=== PATIENT | male | born 1950 | race African-American/Black ===

== ENCOUNTER 2017-11-04 11:30 | Outpatient (RCR) | payer MEDICARE ==
[~2017-11-04 11:30] MED LIST: LIDOCAINE VISC 2% SOLN 15 ML UDC ONE; MINERAL OIL/PETROLAT/GLYCERI 6OZ BTL ONE
[2017-11-11] MEDS ORDERED: MINERAL OIL/PETROLAT/GLYCERI 6OZ BTL ONE (14:14)
== END 2017-11-13 ==
LOC: WCC 11:30
PROVIDERS: ATTEND Podiatrist Foot & Ankle Surgery
DX: T81.89XA Other complications of procedures, not elsewhere classified, initial encounter (principal); E11.621 Type 2 diabetes mellitus with foot ulcer; L97.413 Non-pressure chronic ulcer of right heel and midfoot with necrosis of muscle; R60.0 Localized edema; I89.0 Lymphedema, not elsewhere classified; I87.2 Venous insufficiency (chronic) (peripheral); B96.89 Other specified bacterial agents as the cause of diseases classified elsewhere; I10 Essential (primary) hypertension
CPT/HCPCS: 15275; 29445; 29581 ×7; G0463 ×5; Q4131

== ENCOUNTER → 2017-12-01 | Day surgery (SDC) | payer MEDICARE ==
[~2017-12-01] MED LIST changes: +BACITRACIN ZINC 15 GM OINT ONE; +BENAZEPRIL HCL10 MG PO; +BUPIVACAINE HCL 0.5% INJ 30 ML VIAL INJ ONE; +CEFAZOLIN SOD 1 GM VIAL ONE; +FENTANYL CITRATE/PF 100MCG/2 ML INJ ONE; +LIDOCAINE 1% W/EPINEPHRINE 20 ML VIAL ONE; +LIDOCAINE HCL 1% LOCAL INJ 20 ML VIAL ONE; +LIDOCAINE HCL 2% LOCAL INJ 5 ML SDV VIAL INJ ONE; -LIDOCAINE VISC 2% SOLN 15 ML UDC ONE; +MIDAZOLAM HCL 2 MG/2 ML VIAL ONE; -MINERAL OIL/PETROLAT/GLYCERI 6OZ BTL ONE; +NOVOLOG MI100 UNIT/1 SQ; +PROPOFOL IV EMULSION 10 MG/ML 20 ML VIAL ONE; +SIMVASTATIN40 MG PO; +VERAPAMIL ER120 MG PO
[2017-12-01 09:00] LABS: BASOPHILS % 0.3 % (0.0-1.0); EOSINOPHILS # (AUTO) 0.1 (0.0-0.4); EOSINOPHILS % 1.3 % (0.0-6.0); HEMATOCRIT 36.8 % (34.2-44.1); HEMOGLOBIN 11.9 g/dL (12.0-16.0); LYMPHOCYTES # (AUTO) 3.5 (1.0-3.2); LYMPHOCYTES % 35.7 % (18.0-39.1); MEAN CORPUSCULAR HEMOGLOBIN 25.6 pg (28-32); MEAN CORPUSCULAR HGB CONC 32.3 g/dL (31-35); MEAN CORPUSCULAR VOLUME 79.3 fL (81-99); MONOCYTES # (AUTO) 0.6 (0.2-0.8); MONOCYTES % 6.4 % (4.4-11.3); NEUTROPHILS # (AUTO) 5.5 (2.1-6.9); PLATELET COUNT 205 x10e3/uL (140-360); RED BLOOD COUNT 4.64 x10e6/uL (3.6-5.1); RED CELL DISTRIBUTION WIDTH 17.8 % (11.7-14.4)
--- NOTE | 2017-12-01 14:52 | Operative Report ---
DATE OF PROCEDURE: December 01, 2017 PREOPERATIVE DIAGNOSIS: Infected abscess posterior neck. POSTOPERATIVE DIAGNOSIS: Infected abscess posterior neck. PROCEDURE: Excision of infected abscess posterior neck, approximally 15 cm2. ANESTHESIA: MAC/local. HISTORY: The patient is a 67-year-old insulin-dependent diabetic female who was being seen in the wound care clinic for a purulent draining sinus on the posterior aspect of the neck. The area had been incised and drained and packed; however, it continues to drain suppurative exudate. The risks, benefits, and alternatives of treatment were discussed with the patient and she is prepared to undergo the procedure as outlined. PROCEDURE IN DETAIL: Patient was marked preoperatively in the holding area. She was brought to the operating theater and after the induction of adequate IV sedation, she was prepped and draped in a supine position. A time out was performed. The area around the draining sinus was marked out. The skin and subcutaneous tissues were infiltrated with a 50:50 mixture of 1% Xylocaine with epinephrine and 0.5% plain Marcaine, a total of 20 mL is used. After waiting appropriate amount time for maximum vasoconstrictive effect, the incision was made through the skin and the subcutaneous tissues. The bleeding was controlled using the electrocautery. Using the electrocautery, the entire infected abscess is dissected on the outside to prevent inadvertent puncturing and drainage of the infected contents. It is dissected all the way down to the superficial fascia of the neck and then, the entire specimen is removed en bloc and sent for permanent pathologic examination. The wound is copiously irrigated with bacteriostatic saline. Hemostasis is checked and made absolute using the electrocautery. At this point, a layered closure was performed to remove the space with 3-0 Monocryl in an interrupted buried fashion, followed by 4-0 Monocryl in interrupted buried fashion to approximate the deep dermis and finally 5-0 Monocryl in a running subcuticular stitch. Antibiotic ointment and sterile dressing was applied. Patient tolerated the procedure well. The estimated blood loss for procedure was 15 to 20 mL. She was returned to recovery room in satisfactory condition and discharged with a postoperative instruction sheet as well as a followup appointment. Job#: [id number] VAS
--- OUTSIDE RECORDS SUMMARY | 2018-02-20 17:15 | XMS REPORT | Continuity of Care Document ---
Author Author [facility] Organization [facility] Address [address] [place] [address] Phone Unavailable Care Team Providers Care Community Living Coach Name Role Phone NONSTAFF PCP Unavailable Insurance Providers Guarantor Padmini Powell Address [address] [place] [address] Email NONE Payer [facility] Policy Number [id number] Subscriber's Name Andre,Padmini M Relationship 18 Self / Same As Patient Effective Date 17 Payer Medicare A & B Policy Number [id number] Subscriber's Name Padmini Powell Relationship 18 Self / Same As Patient Effective Date 17 Advance Directives Directive Response Recorded Date/Time Does the patient have an advance directive? No 12/16/16 12:41pm If yes, is advance directive on file with [facility]? No 12/16/16 12:41pm If not on file with [facility] will patient provide a copy? No 12/16/16 12:41pm Do you have a Directive to Physician? No 01/17/18 10:50am Do you have a Medical Power of Icu Specialist? No 01/17/18 10:50am Do you have an out of hospital Do Not Resuscitate Order? No 01/17/18 10:50am Do you have any special needs we should be aware of? No 01/17/18 10:50am Do you have a support person here with you today? No 01/17/18 10:50am Did patient receive Notice of Privacy Practices? Yes 01/17/18 10:50am Did patient receive patient rights and responsibilities? Yes 01/17/18 10:50am Problems No problem information available. Medications Current Home Medications Medication Dose Units Route Directions Days Qty Instructions Start Date Benazepril Hcl 10 Mg Tablet 20 Mg Oral Daily 30 Tab Insuln Asp Prt/Insulin Aspart (Novolog Mix 70-30 Flexpen Syrn) 100 Unit/1 Ml Insuln.pen 50 Unit Sub-Q Am Insuln Asp Prt/Insulin Aspart (Novolog Mix 70-30 Flexpen Syrn) 100 Unit/1 Ml Insuln.pen 40 Units Sub-Q Pm Simvastatin 40 Mg Tablet 40 Mg Oral Today At 9:00PM 30 Tab Verapamil Hcl (Verapamil Er) 120 Mg Cap24h.pel 240 Mg Oral Daily Social History No social history information available. Hospital Discharge Instructions No hospital discharge instruction information available. Plan of Care Prescriptions See Medication Section Functional Status No functional status information available. Allergies, Adverse Reactions, Alerts No known allergies. Immunizations No immunization information available. Vital Signs No vital sign information available. Results Laboratory Results Test Name Result Units Flags Reference Collection Date/Time Result Date/ Time Comments White Blood Count 7.08 x10e3/uL 4.8-10.8 05/11/2017 3:50pm 05/11/2017 3 :54pm Red Blood Count 4.08 x10e6/uL 3.6-5.1 05/11/2017 3:50pm 05/11/2017 3: 54pm Hemoglobin 10.3 g/dL L 12.0-16.0 05/11/2017 3:50pm 05/11/2017 3:54pm Hematocrit 31.7 % L 34.2-44.1 05/11/2017 3:50pm 05/11/2017 3:54pm Mean Corpuscular Volume 77.7 fL L 81-99 05/11/2017 3:50pm 05/11/2017 3: 54pm Mean Corpuscular Hemoglobin 25.2 pg L 28-32 05/11/2017 3:50pm 2016 3:54pm Mean Corpuscular Hemoglobin Concent 32.5 g/dL 31-35 05/11/2017 3:50pm 05/11/2017 3:54pm Red Cell Distribution Width 18.7 % H 11.7-14.4 05/11/2017 3:50pm 2016 3:54pm Platelet Count 213 x10e3/uL 140-360 05/11/2017 3:50pm 05/11/2017 3: 54pm Neutrophils (%) (Auto) 62.0 % 38.7-80.0 05/11/2017 3:50pm 05/11/2017 3: 54pm Lymphocytes (%) (Auto) 27.8 % 18.0-39.1 05/11/2017 3:50pm 05/11/2017 3: 54pm Monocytes (%) (Auto) 8.2 % 4.4-11.3 05/11/2017 3:50pm 05/11/2017 3: 54pm Eosinophils (%) (Auto) 1.6 % 0.0-6.0 05/11/2017 3:50pm 05/11/2017 3: 54pm Basophils (%) (Auto) 0.1 % 0.0-1.0 05/11/2017 3:50pm 05/11/2017 3:54pm IM GRANULOCYTES % 0.3 % 0.0-1.0 05/11/2017 3:50pm 05/11/2017 3:54pm Neutrophils # (Auto) 4.4 2.1-6.9 05/11/2017 3:50pm 05/11/2017 3:54pm Lymphocytes # (Auto) 2.0 1.0-3.2 05/11/2017 3:50pm 05/11/2017 3:54pm Monocytes # (Auto) 0.6 0.2-0.8 05/11/2017 3:50pm 05/11/2017 3:54pm Eosinophils # (Auto) 0.1 0.0-0.4 05/11/2017 3:50pm 05/11/2017 3:54pm Basophils # (Auto) 0.0 0.0-0.1 05/11/2017 3:50pm 05/11/2017 3:54pm Absolute Immature Granulocyte (auto 0.02 x10e3/uL 0-0.1 05/11/2017 3: 50pm 05/11/2017 3:54pm Sodium Level 141 mmol/L 136-145 05/11/2017 3:50pm 05/11/2017 4:15pm Potassium Level 3.4 mmol/L L 3.5-5.1 05/11/2017 3:50pm 05/11/2017 4: 15pm Chloride Level 105 mmol/L 98-107 05/11/2017 3:50pm 05/11/2017 4:15pm Carbon Dioxide Level 26 mmol/L 22-05/11/2017 3:50pm 05/11/2017 4: 15pm Anion Gap 13.4 mmol/L 8-05/11/2017 3:5005/11/2017 4:15pm Blood Urea Nitrogen 6 mg/dL L -05/11/2017 3:50pm 05/11/2017 4:15pm Creatinine 0.81 mg/dL 0.57-1.11 05/11/2017 3:5005/11/2017 4:15pm BUN/Creatinine Ratio 7 05-0805/11/2017 3:50pm 05/11/2017 4:15pm Estimat Glomerular Filtration Rate > 60 ML/MIN 60- 05/11/2017 3:50pm 4:15pm Ranges were taken from the National Kidney Disease Education Program and the National [employer] literature. Reference ranges: 60 or greater: Normal 16-59 (for 3 consecutive months): Chronic kidney disease 15 or less: Kidney failure Glucose Level 125 mg/dL H 74-118 05/11/2017 3:50pm 05/11/2017 4:15pm Calcium Level 9.0 mg/dL 8.4-10.2 05/11/2017 3:5005/11/2017 4:15pm Hemoglobin A1c Percent 5.6 % 4.0-7.0 05/11/2017 3:05/11/2017 4: 01pm Total Bilirubin 0.6 mg/dL 0.2-1.2 05/11/2017 3:05/11/2017 4:15pm Aspartate Amino Transf (AST/SGOT) 10 IU/L 5-34 05/11/2017 3:50pm 2016 4:15pm Alanine Aminotransferase (ALT/SGPT) 7 IU/L 0-55 05/11/2017 3:50pm 05/11 4:15pm Total Protein 6.7 g/dL 6.5-8.1 05/11/2017 3:5005/11/2017 4:15pm Albumin 3.4 g/dL L 3.5-5.0 05/11/2017 3:50pm 05/11/2017 4:15pm Globulin 3.3 g/dL 2.3-3.5 05/11/2017 3:50pm 05/11/2017 4:15pm Albumin/Globulin Ratio 1.0 0.8-2.0 05/11/2017 3:50pm 05/11/2017 4: 15pm Alkaline Phosphatase 57 IU/L 40-150 05/11/2017 3:50pm 05/11/2017 4: 15pm Prealbumin 13 mg/dL 10-36 05/11/2017 3:50pm 05/12/2017 10:19am Performed at: [facility] [id number] Supervisor [employer]: Angel Kahn MD, Phone: [phone] Bedside Glucose 104 mg/dL 70-120 09/07/2017 12:29pm 09/08/2017 8:30am Meter ID: [id number] Procedures Procedure Status Date Provider(s) APPLY CURRY JOSEPH LWR LEG Completed 09/14/17 MELISA PHILLIP DPM Encounters Encounter Location Arrival/Admit Date Discharge/Depart Date Attending Provider Discharged [facility] 02/07/18 1:22pm 02/11/18 11:59pm MELISA PHILLIP DPM Discharged [facility] 12/20/17 12:25pm 11:59pm MELISA PHILLIP DPM Discharged [facility] 11/16/17 11:51am 11:59pm MELISA PHILLIP DPM Discharged [facility] 10/14/17 9:45am 11/13/17 11:59pm MELISA PHILLIP DPM Discharged [facility] 09/14/17 12:08pm 11:59pm ANGEL VINCENT MD Discharged [facility] 08/17/17 12:07pm 11:59pm MELISA PHILLIP DPM [facility]istered [facility] 08/15/17 10:53am MELISA NICHOLS DPM [facility]istered [facility] 08/12/17 9:13am MELISA NICHOLS DPM [facility] 08/10/17 11:57am MELISA NICHOLS DPM [facility] 08/08/17 7:31am MELISA NICHOLS DPM [facility]istered [facility] 08/05/17 10:29am MELISA NICHOLS DPM [facility]istered [facility] 08/03/17 12:14pm BOLIVAR LUCAS MD [facility]istered [facility] 08/01/17 10:00am BOLIVAR LUCAS MD [facility]istered [facility] 07/29/17 9:01am BOLIVAR LUCAS MD [facility]istered [facility] 07/27/17 12:11pm MELISA NICHOLS DPM [facility]istered [facility] 07/25/17 9:40am MELISA NICHOLS DPM [facility] 07/22/17 9:20am MELISA NICHOLS DPM [facility] 07/20/17 1:31pm MELISA NICHOLS DPM [facility] 07/15/17 10:42am MELISA NICHOLS DPM [facility] 07/08/17 9:28am MELISA NICHOLS DPM [facility] 07/06/17 12:00pm MELISA NICHOLS DPM [facility] 07/04/17 9:32am MELISA NICHOLS DPM [facility] 07/01/17 9:07am MELISA NICHOLS DPSharmila [facility] 06/29/17 12:42pm MELISA NICHOLS DPM [facility] 06/27/17 10:26am MELISA NICHOLS DPSharmila [facility] 06/24/17 9:40am MELISA NICHOLS DPSharmila [facility] 06/22/17 12:15pm MELISA NICHOLS DPM [facility] 06/20/17 9:06am MELISA NICHOLS DPSharmila [facility] 06/17/17 11:12am MELISA NICHOLS DPSharmila [facility] 06/15/17 12:55pm MELISA NICHOLS DPM [facility] 06/13/17 9:15am ANGEL VINCENT MD [facility] 06/10/17 9:26am MELISA NICHOLS DPSharmila [facility] 06/08/17 12:29pm MELISA NICHOLS DPSharmila [facility] 06/03/17 8:48am MELISA NICHOLS DPSharmila [facility] 06/01/17 12:28pm MELISA NICHOLS DPSharmila [facility] 05/30/17 10:00am MELISA NICHOLS DPM [facility] 05/27/17 9:05am MELISA NICHOLS DPSharmila [facility] 05/25/17 11:55am MELISA NICHOLS DPSharmila [facility] 05/23/17 9:11am MELISA NICHOLS DPM [facility] 05/20/17 8:48am MELISA NICHOLS DPM [facility] 05/13/17 8:43am MELISA NICHOLS DPM [facility] 05/11/17 12:33pm MELISA NICHOLS DPM [facility] 05/09/17 9:26am MELISA NICHOLS DPM [facility] 05/06/17 11:03am MELISA NICHOLS DPM [facility] 05/04/17 10:17am JERMAN ROGERS MD
--- OUTSIDE RECORDS SUMMARY | 2018-02-20 17:16 | XMS REPORT ---
Author Author Admin[place] [facility] [place] Phone Unavailable Allergies, Adverse Reactions, Alerts Allergy Name Reaction Description Start Date Severity Status Provider No Known Allergies Radha Potter MA Conditions or Problems Problem Name Problem Code Onset Date Status Entry Date Provider Comment Standard Description Annotate Annual exam V72.31 Active Natalee Drake MD Routine gynecological examination Mammogram yearly screening V76.12 Active Natalee Drake MD Other screening mammogram Iron deficiency anemia 280.9 Active Natalee Drake MD Iron deficiency anemia, unspecified Gait disturbance 781.2 Active Natalee Drake MD Abnormality of gait Ulcer, leg 707.10 Active Natalee Drake MD Ulcer of lower limb, unspecified Lymphedema 457.1 Active Natalee Drake MD Other lymphedema Heart murmur 785.2 Active Natalee Drake MD Undiagnosed cardiac murmurs Swelling of bilateral legs 729.81 Active Natalee Drake MD Swelling of limb CKD stage 2 (gfr 60-89) 585.2 Active Diana Schwartz MD Chronic kidney disease, Stage II (mild) DM Diabetes mellitus, type II, controlled, 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 Screening for malignant neoplasms of colon Depression 311 Active Mary Lou Berg D.O. Depressive disorder, not elsewhere classified Dysuria 788.1 Active Mary Lou Berg D.O. Dysuria NEED FOR PROPHYLACTIC VACCINATION AND INOCULATION, INFLUENZA V04.81 Active Mary Lou Berg D.O. Need for prophylactic vaccination and inoculation against influenza Gingivitis 523.10 Active Diana Schwartz MD Chronic gingivitis, plaque induced MORBID OBESITY 278.01 Active Diana Schwartz MD Morbid obesity Periodontal disease 523.9 Active Diana Schwartz MD Unspecified gingival and periodontal disease BACK PAIN 724.5 Active Ashish Ortiz MD Backache, unspecified DIABETIC PERIPHERAL NEUROPATHY 250.60 Active Ashish Ortiz MD Diabetes mellitus with neurological manifestations, type II or unspecified type, not stated as uncontrolled DIABETES MELLITUS 250.00 Active Ashish Ortiz MD Diabetes mellitus without mention of complication, type II or unspecified type, not stated as uncontrolled GERD 530.81 Active Ashish Ortiz MD Esophageal reflux GLAUCOMA 365.9 Active Ashish Ortiz MD Unspecified glaucoma HYPERTENSION 401.1 Active Ashish Ortiz MD Benign essential hypertension CELLULITIS ICD-682.9 Inactive Natalee Drake MD CELLULITIS 682.9 Resolved Natalee Drake MD Cellulitis and abscess of unspecified sites Medication List Medication Instructions Start Date Stop Date Generic Name NDC Status Provider Patient Instruction AMOXICILLIN 500 MG ORAL CAPSULE 1 by mouth 2 times a day AMOXICILLIN 04302898771 Active Natalee Drake MD Active FERROUS SULFATE 325 (65 Fe) MG ORAL TABLET DELAYED RELEASE 1 by mouth 2 times a daily FERROUS SULFATE 52512966094 Active Natalee Drake MD Active TERAZOL 7 0.4 % VAGINAL CREAM Insert 1 applicatorful intravaginally at bedtime for 7 consecutive days. TERCONAZOLE 55559779146 Active Natalee Drake MD Active LANCETS use to test blood sugars Three Times a Day LANCETS 11595382383 Active Pili Huerta CPHT Active ACCU-CHEK SHAYLA PLUS w/Device KIT use to test blood sugars Three Times a Day BLOOD GLUCOSE MONITORING SUPPL 69079234214 Active Pili Huerta CPHT Active ACCU-CHEK SHAYLA PLUS IN VITRO STRIP use to test blood sugars Three Times a Day GLUCOSE BLOOD 71347376835 Active Pili Huerta CPHT Active K-TAB 20 MEQ ORAL TABLET EXTENDED RELEASE Take one tablet once daily POTASSIUM CHLORIDE 42773279360 Active Natalee Drake MD Active LASIX 40 MG ORAL TABLET 1 by mouth every am FUROSEMIDE 94996353541 Active Natalee Drake MD Active TRAMADOL HCL 50 MG ORAL TABLET 1-2 tablets by mouth 4 times a day as needed for pain TRAMADOL HCL 65017696136 Active Natalee Drake MD Active BD INSULIN SYRINGE ULTRAFINE 31G X 5/16" 1 ML use as directed to dose insulin 2 times aday. INSULIN SYRINGE-NEEDLE U-100 51960646885 Active Natalee Drake MD Active METFORMIN HCL 500 MG ORAL TABLET 1 by mouth twice a day METFORMIN HCL 38922060943 Active Natalee Drake MD Active MUPIROCIN 2 % EXTERNAL OINTMENT MUPIROCIN 69332773145 Active Natalee Drake MD Active VERAPAMIL HCL ER 240 MG ORAL TABLET EXTENDED RELEASE 1 by mouth every day VERAPAMIL HCL 63727159150 Active Nia Stoner MD (res) Active ASPIRIN 81 MG ORAL TABLET 1 by mouth every day ASPIRIN 11766490436 Active Nader Greco MD Active SIMVASTATIN 40 MG ORAL TABLET 1 by mouth every night SIMVASTATIN 98241171062 Active iNa Stoner MD (res) Active AMITRIPTYLINE HCL 150 MG ORAL TABLET Take tablet By Mouth take at bedtime AMITRIPTYLINE HCL 90332355057 Active Natalee Drake MD Active BENAZEPRIL HCL 20 MG ORAL TABLET Take 1 tablet By Mouth daily BENAZEPRIL HCL 43464154247 Active Nia Stoner MD (res) Active NOVOLOG MIX 70/30 (70-30) 100 UNIT/ML SUBCUTANEOUS SUSPENSION Take 60 units IM Twice a Day. INSULIN ASPART PROT & ASPART 12875926621 Active Natalee Drake MD Active ZANTAC 150 MG ORAL TABLET 1 by mouth twice a day RANITIDINE HCL 23464247830 Active Natalee Drake MD Active CLOTRIMAZOLE 1 % EXTERNAL CREAM apply Twice a Day to affected areas CLOTRIMAZOLE 1 % EXTERNAL CREAM 598530 CLOTRIMAZOLE Inactive BACTRIM DS 800-160 MG ORAL TABLET 1 tab by mouth twice a day 2015 BACTRIM DS 800-160 MG ORAL TABLET 613714 TRIMETHOPRIM- SULFAMETHOXAZOLE Inactive LASIX 20 MG ORAL TABLET 1 by mouth every am LASIX 20 MG ORAL TABLET 929764 FUROSEMIDE Inactive BACTRIM DS 800-160 MG ORAL TABLET 1 tab by mouth twice a day 2015 BACTRIM DS 800-160 MG ORAL TABLET 113759 TRIMETHOPRIM- SULFAMETHOXAZOLE Inactive AMOXICILLIN 500 MG ORAL CAPSULE 1 by mouth 2 times a day for 7 days AMOXICILLIN 500 MG ORAL CAPSULE 838866 AMOXICILLIN Inactive ZAZOLE 0.4 % VAGINAL CREAM Apply topically to vagina for 1 week ZAZOLE 0.4 % VAGINAL CREAM TERCONAZOLE Inactive ONETOUCH ULTRA BLUE IN VITRO STRIP use to test blood sugars Three Times a Day GLUCOSE BLOOD 69259531594 No Longer Active Pili Huerta CPHT Active CLOTRIMAZOLE 1 % EXTERNAL CREAM apply Twice a Day to affected areas CLOTRIMAZOLE 36312185188 No Longer Active Natalee Drake MD Active BACTRIM DS 800-160 MG ORAL TABLET 1 tab by mouth twice a day 2015 TRIMETHOPRIM-SULFAMETHOXAZOLE 02187833488 No Longer Active Natalee Drake MD Active LASIX 20 MG ORAL TABLET 1 by mouth every am FUROSEMIDE 66808945661 No Longer Active Natalee Drake MD Active BACTRIM DS 800-160 MG ORAL TABLET 1 tab by mouth twice a day 2015 TRIMETHOPRIM-SULFAMETHOXAZOLE 36503932291 No Longer Active Marcela Gillespie MD Active AMOXICILLIN 500 MG ORAL CAPSULE 1 by mouth 2 times a day for 7 days AMOXICILLIN 10215357988 No Longer Active Shahid Hernández MD Active ZAZOLE 0.4 % VAGINAL CREAM Apply topically to vagina for 1 week TERCONAZOLE 04630669477 No Longer Active Natalee Drake MD Active Vital Signs Date Name Value Unit Range Description blood pressure, diastolic 77 mm[Hg] BP grimm blood pressure, systolic 159 mm[Hg] BP sys height E&M 69 [in_us] Bdy height pulse rate E&M 75 /min Heart rate respiratory rate E&M 19 /min Resp rate temperature E&M 98.5 [degF] Body temperature weight E&M 305.20 [lb_av] Weight Measured blood pressure, diastolic 67 mm[Hg] BP grimm blood pressure, systolic 134 mm[Hg] BP sys height E&M 69 [in_us] Bdy height pulse rate E&M 84 /min Heart rate respiratory rate E&M 18 /min Resp rate temperature E&M 99.5 [degF] Body temperature weight E&M 304.80 [lb_av] Weight Measured blood pressure, diastolic 77 mm[Hg] BP grimm blood pressure, systolic 147 mm[Hg] BP sys height E&M 69 [in_us] Bdy height pulse rate E&M 87 /min Heart rate respiratory rate E&M 23 /min Resp rate temperature E&M 98.7 [degF] Body temperature weight E&M 312.69 [lb_av] Weight Measured Diagnostic Results Date Name Value Unit Range Description Lab Report: Comp. Metabolic Panel (14), Urinalysis, Complete, Microscopi ... - Urinalysis epithelial cells, urine 0-10 /[LPF] 0 - 10 pH, urine, semiquantitative 7.0 5.0-7.5 Lab Report: Comp. Metabolic Panel (14), Hemoglobin A1c - Chemistry urea nitrogen, blood 7 mg/dL 8-27 Lab Report: Comp. Metabolic Panel (14), Urinalysis, Complete, Microscopi ... - Urinalysis bilirubin, urine Negative Negative Lab Report: Comp. Metabolic Panel (14), Hemoglobin A1c - Chemistry creatinine, serum 0.80 mg/dL 0.57-1.00 chloride, serum 98 mmol/L 97-108 Lab Report: Lipid Panel - Chemistry triglyceride, serum, fasting 87 mg/dL 0-149 Lab Report: Comp. Metabolic Panel (14), Hemoglobin A1c - Chemistry Estimated Glomerular Filtration Rate (calc) 79 mL/min/1.73m2 > 59 Lab Report: Comp. Metabolic Panel (14), Urinalysis, Complete, Microscopi ... - Urinalysis appearance, urine Clear Clear Lab Report: Comp. Metabolic Panel (14), Hemoglobin A1c - Chemistry protein, total, serum 6.8 g/dL 6.0-8.5 Lab Report: Lipid Panel - Chemistry HDL cholesterol, serum 67 mg/dL >39 Lab Report: Comp. Metabolic Panel (14), Urinalysis, Complete, Microscopi ... - Urinalysis mucus on urinalysis Present Not Estab. Lab Report: Comp. Metabolic Panel (14), Urinalysis, Complete, Microscopi ... - Chemistry specific gravity, body fluid 1.010 1.005-1.030 Lab Report: Comp. Metabolic Panel (14), Hemoglobin A1c - Chemistry albumin/globulin ratio, serum 1.4 1.1-2.5 Lab Report: Comp. Metabolic Panel (14), Urinalysis, Complete, Microscopi ... - Urinalysis glucose, urine, semiquantitative Negative Negative Lab Report: Comp. Metabolic Panel (14), Urinalysis, Complete, Microscopi ... - Chemistry microalbumin/creatinine ratio, urine 8.9 MG/G CREAT ug/mg 0.0- 30.0 Lab Report: Comp. Metabolic Panel (14), Hemoglobin A1c - Chemistry alanine aminotransferase (SGPT), serum 8 U/L 0-32 Lab Report: Lipid Panel - Chemistry LDL cholesterol, serum 72 mg/dL 0-99 cholesterol, serum 156 mg/dL 100-199 Lab Report: Comp. Metabolic Panel (14), Urinalysis, Complete, Microscopi ... - Basic Occult Blood, urine Negative Negative Lab Report: Comp. Metabolic Panel (14), Urinalysis, Complete, Microscopi ... - Urinalysis leukocyte esterase, urine, by dipstick 2+ Negative urinalysis, microscopic examination See below: protein, urine, semiquantitative (dipstick) Negative Negative/ Trace Lab Report: Comp. Metabolic Panel (14), Hemoglobin A1c - Chemistry globulin, serum 2.8 1.5-4.5 Lab Report: Comp. Metabolic Panel (14), Urinalysis, Complete, Microscopi ... - Urinalysis bacteria, urine microscopy Few None seen/Few Lab Report: Comp. Metabolic Panel (14), Hemoglobin A1c - Chemistry albumin, serum 4.0 g/dL 3.6-4.8 Internal Correspondence: Pre-Visit Planning - Other List of providers caring for patient Dr. Drake and Phil Herrera Lab Report: Lipid Panel - Chemistry very low density lipoproteins 17 mg/dL 5-40 Lab Report: Comp. Metabolic Panel (14), Urinalysis, Complete, Microscopi ... - Urinalysis urobilinogen, urine, semiquantitative (dipstick) 1.0 0.2-1.0 Lab Report: Comp. Metabolic Panel (14), Hemoglobin A1c - Chemistry calcium, serum 8.9 mg/dL 8.7-10.3 Lab Report: Comp. Metabolic Panel (14), Urinalysis, Complete, Microscopi ... - Urinalysis microalbumin/total urine volume 4.8 mg/L 0.0-17.0 Internal Correspondence: Pre-Visit Planning - [facility] care prepared foods service team member #1, name Sarah Beth Loera Lab Report: Comp. Metabolic Panel (14), Hemoglobin A1c - Chemistry urea nitrogen/creatinine ratio, serum 9 10-09 Lab Report: Comp. Metabolic Panel (14), Hemoglobin A1c - Genetics/fertility eGFR if 91 mL/min/1.73m2 >59 Lab Report: Comp. Metabolic Panel (14), Urinalysis, Complete, Microscopi ... - Urinalysis WBC urine on microscopy 6-10 /hpf {Cells}/[HPF] 0 - 5 Lab Report: Comp. Metabolic Panel (14), Hemoglobin A1c - Chemistry carbon dioxide, venous blood 24 mmol/L 18-29 Lab Report: Comp. Metabolic Panel (14), Urinalysis, Complete, Microscopi ... - Chemistry RBC, Urine None seen /hpf /[HPF] 0 - 2 Lab Report: Comp. Metabolic Panel (14), Hemoglobin A1c - Chemistry sodium, serum 140 mmol/L 134-144 Lab Report: Hemoglobin A1c - Chemistry hemoglobin A1C, blood, as % of total hemoglobin 7.9 % 4.8-5.6 Office Visit: Annual Female Rm10 Noelle - Chemistry blood glucose, fasting 143 mg/dL Lab Report: Comp. Metabolic Panel (14), Hemoglobin A1c - Chemistry alkaline phosphatase, serum 76 U/L 39-117 Lab Report: Comp. Metabolic Panel (14), Urinalysis, Complete, Microscopi ... - Urinalysis ketones, urine, by test strip Negative Negative Lab Report: Comp. Metabolic Panel (14), Hemoglobin A1c - Chemistry bilirubin, serum, total 0.4 mg/dL 0.0-1.2 Lab Report: Comp. Metabolic Panel (14), Urinalysis, Complete, Microscopi ... - Chemistry creatinine, random, urine 54.2 mg/dL 15.0-278.0 nitrate, urine Positive Negative Office Visit: Adult Followup///# 8_Noelle - Chemistry blood glucose, random 142 mg/dL Lab Report: Comp. Metabolic Panel (14), Hemoglobin A1c - Chemistry potassium, serum 3.9 mmol/L 3.5-5.2 aspartate aminotransferase (SGOT), serum 11 U/L 0-40 Lab Report: Comp. Metabolic Panel (14), Urinalysis, Complete, Microscopi ... - Urinalysis urine color Yellow Yellow Encounters Date Encounter Provider Code Facility 16:55:18 CDT Est Patient Detailed - 41208 Natalee Drake MD CPT- 89632 [facility] 18:26:48 CDT Est Patient Exp Problem - 50936 Mary Lou Berg D.O. 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 Est Patient Detailed - 54350 Natalee Drake MD CPT- 16108 [facility] 11:42:41 CDT Est Patient Exp Problem - 08387 Natalee Drake MD CPT-34994 [facility] 10:49:34 CDT Est Patient Exp Problem - 57263 Natalee Drake MD CPT-64837 [facility] 17:35:33 CDT Est Patient Detailed - 16944 Natalee Drake MD CPT- 28854 [facility] 22:45:17 CDT Est Patient Exp Problem - 18232 Diana Schwartz MD CPT -60269 [facility] 10:30:05 REED [employer]UMENT REPAIRER Est Patient Exp Problem - 18750 Shahid Hernández MD CPT-74217 [facility] 14:42:00 CDT Est Patient Exp Problem - 97049 Mary Lou Berg D.O. CPT-54730 [facility] 06:23:49 CDT Est Patient Exp Problem - 30911 Diana Schwartz MD CPT -13547 [facility] 18:27:41 CDT Est Patient Exp Problem - 52979 Ashish Ortiz MD CPT- 24903 [facility] 18:39:28 CDT New Patient Exp Problem - 83192 Ashish Ortiz MD CPT- 07741 [facility] Procedures Code Procedure Name Date Entry Date Standard Description CPT-40339 Est Patient Well Exam (65 & Over) - 51529 10:43:51 CDT
== END | disposition home or self-care (01) ==
LOC: OR 07:00 → EDSEX 09:00
PROVIDERS: ATTEND Plastic Surgery
DX: L02.11 Cutaneous abscess of neck (principal); L72.0 Epidermal cyst; R03.0 Elevated blood-pressure reading, without diagnosis of hypertension; E11.9 Type 2 diabetes mellitus without complications; Z79.4 Long term (current) use of insulin
CPT/HCPCS: 21552; 36415; 82948; 85025; 88304; 93005; J0690; J2001; J2250

== ENCOUNTER → 2017-12-14 | Outpatient (RCR) | payer MEDICARE ==
[~2017-12-14] MED LIST changes: -BACITRACIN ZINC 15 GM OINT ONE; -BUPIVACAINE HCL 0.5% INJ 30 ML VIAL INJ ONE; -CEFAZOLIN SOD 1 GM VIAL ONE; -FENTANYL CITRATE/PF 100MCG/2 ML INJ ONE; -LIDOCAINE 1% W/EPINEPHRINE 20 ML VIAL ONE; -LIDOCAINE HCL 1% LOCAL INJ 20 ML VIAL ONE; -LIDOCAINE HCL 2% LOCAL INJ 5 ML SDV VIAL INJ ONE; -MIDAZOLAM HCL 2 MG/2 ML VIAL ONE; +MINERAL OIL/PETROLAT/GLYCERI 6OZ BTL ONE; -PROPOFOL IV EMULSION 10 MG/ML 20 ML VIAL ONE
== END ==
LOC: EDSEX → WCC 11-16 11:51
PROVIDERS: ATTEND Podiatrist Foot & Ankle Surgery
DX: T81.89XA Other complications of procedures, not elsewhere classified, initial encounter (principal); E11.621 Type 2 diabetes mellitus with foot ulcer; L97.421 Non-pressure chronic ulcer of left heel and midfoot limited to breakdown of skin; L97.413 Non-pressure chronic ulcer of right heel and midfoot with necrosis of muscle; I89.0 Lymphedema, not elsewhere classified; I87.2 Venous insufficiency (chronic) (peripheral); R60.0 Localized edema; B96.89 Other specified bacterial agents as the cause of diseases classified elsewhere; I10 Essential (primary) hypertension; L72.3 Sebaceous cyst
CPT/HCPCS: 29581 ×7; G0463 ×5

== ENCOUNTER 2017-12-27 11:14 | Outpatient (RCR) | payer MEDICARE ==
[~2017-12-27 11:14] MED LIST changes: -MINERAL OIL/PETROLAT/GLYCERI 6OZ BTL ONE
== END 2018-01-11 ==
LOC: WCC 11:14
PROVIDERS: ATTEND Podiatrist Foot & Ankle Surgery
DX: E11.621 Type 2 diabetes mellitus with foot ulcer (principal); R60.0 Localized edema; I89.0 Lymphedema, not elsewhere classified; I87.2 Venous insufficiency (chronic) (peripheral); I10 Essential (primary) hypertension; B96.89 Other specified bacterial agents as the cause of diseases classified elsewhere

== ENCOUNTER 2018-02-07 13:22 | Outpatient (RCR) | payer MEDICARE ==
[~2018-02-07 13:22] MED LIST changes: +MINERAL OIL/PETROLAT/GLYCERI 6OZ BTL ONE
== END 2018-02-11 ==
LOC: WCC 13:22
PROVIDERS: ATTEND Podiatrist Foot & Ankle Surgery
DX: E11.621 Type 2 diabetes mellitus with foot ulcer (principal); S80.822A Blister (nonthermal), left lower leg, initial encounter; I89.0 Lymphedema, not elsewhere classified; R60.0 Localized edema; I87.2 Venous insufficiency (chronic) (peripheral); B96.89 Other specified bacterial agents as the cause of diseases classified elsewhere; I10 Essential (primary) hypertension

== ENCOUNTER 2018-02-15 12:37 | Outpatient (RCR) | payer MEDICARE ==
[~2018-02-15 12:37] MED LIST changes: -MINERAL OIL/PETROLAT/GLYCERI 6OZ BTL ONE
== END 2018-03-13 ==
LOC: WCC 12:37
PROVIDERS: ATTEND Podiatrist Foot & Ankle Surgery
DX: E11.621 Type 2 diabetes mellitus with foot ulcer (principal); I89.0 Lymphedema, not elsewhere classified; R60.0 Localized edema; I87.2 Venous insufficiency (chronic) (peripheral); I10 Essential (primary) hypertension; B96.89 Other specified bacterial agents as the cause of diseases classified elsewhere

== ENCOUNTER 2018-03-29 12:08 | Outpatient (RCR) | payer MEDICARE ==
[~2018-03-29 12:08] MED LIST changes: +MINERAL OIL/PETROLAT/GLYCERI 6OZ BTL ONE
== END 2018-04-13 ==
LOC: WCC 12:08
PROVIDERS: ATTEND Podiatrist Foot & Ankle Surgery
DX: E11.621 Type 2 diabetes mellitus with foot ulcer (principal); I89.0 Lymphedema, not elsewhere classified; I87.2 Venous insufficiency (chronic) (peripheral); R60.0 Localized edema; B96.89 Other specified bacterial agents as the cause of diseases classified elsewhere; I10 Essential (primary) hypertension

== ENCOUNTER → 2018-11-20 | Outpatient (CLI) | payer MEDICARE ==
[~2018-11-20] MED LIST changes: -MINERAL OIL/PETROLAT/GLYCERI 6OZ BTL ONE
--- NOTE | 2018-11-20 10:00 | NUR ---
1000am received pt for PICC line placement by KEV Cortes per Dr Arjun Rogers orders via [facility]. Identifiers x2. Reviewed consent and time out performed per policy. Pt stated at that time she doesn't understand who or when iv antibiotics would be given or what to do next. I called [facility] as courtesy for pt followup info. .Ara Bird Rn reinforced to me that home health would be doing followup when PICC in place. She was informed orders of Dr Rogers were completed and I reinforced previous stated instructions to pt and family member (son ) Diamante [phone] of POC. MRI completed,CXR confirmation of PICC done with Dr Solomon ware and pt DC home per w/c. Family has Picc line instructions with Cxr report of placement, No co or concerns voiced.
--- NOTE | 2018-11-20 11:27 | Diagnostic Imaging Report ---
EXAM: CHEST XRAY LINE PLACEMENT, AP Portable DATE: 11/20/2018 9:27 AM Time stamp on exam: 9:56 AM INDICATION: PICC placement COMPARISON: None FINDINGS: LINES/TUBES: Left-sided PICC terminates with the tip overlying the SVC. LUNGS: No consolidations or edema. PLEURA: No effusions or pneumothorax. HEART AND MEDIASTINUM: Normal size and contour. BONES AND SOFT TISSUES: No acute findings. IMPRESSION: No acute thoracic abnormality. Signed by: Dr. Chaitanya Carbajal DO on 11/20/2018 11:23 AM
--- NOTE | 2018-11-20 15:50 | Diagnostic Imaging Report ---
TECHNIQUE: Magnetic resonance imaging of the RIGHT foot (hindfoot) was performed WITHOUT injected contrast. HISTORY: Pressure ulcer, right heel COMPARISON: None available. DISCUSSION: Bone: Moderate bone marrow edema within the dorsal calcaneus Confluent dorsal decreased subcortical fatty marrow signal. Joints: Trace nonspecific tibiotalar and subtalar joint effusions. No dislocation. Soft Tissues: Dorsal soft tissue defect with marked regional edema, but no drainable fluid collection. IMPRESSION: 1. Dorsal calcaneal osteomyelitis. 2. No soft tissue abscess. Signed by: Dr. Akash Vo D.O., M.M.M. on 11/20/2018 3:46 PM
== END ==
LOC: DX 09:17
PROVIDERS: ATTEND Podiatrist Foot & Ankle Surgery
DX: L89.613 Pressure ulcer of right heel, stage 3 (principal)
CPT/HCPCS: 36569; 71045

== ENCOUNTER 2018-12-06 14:31 | Inpatient (IN) | payer MEDICARE ==
[~2018-12-06] VITALS: Ht 175.3 cm; Wt 139.7 kg
--- OUTSIDE RECORDS SUMMARY | 2018-12-06 14:35 | XMS REPORT ---
Author Author Admin, [place] Organization [facility] Address [address] [place] [address] Phone Allergies, Adverse Reactions, Alerts Allergy Name Reaction Description Start Date Severity Status Provider No Known Allergies Marjorie Brady MA Conditions or Problems Problem Name Problem Code Onset Date Status Entry Date Provider Comment Standard Description Annotate DYSURIA 788.1 Active Natalee Drake MD Dysuria Dental caries 521.00 Active Natalee Drake MD Dental caries, unspecified Macular scar, right 363.32 Active Natalee Drake MD Other macular scars of retina Annual exam V72.31 Active Natalee Drake MD [...] type II, controlled, 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 Diana Schwartz MD Diabetes mellitus with renal manifestations, type II or unspecified type, not stated as uncontrolled GFR 69 Hx of fall V15.88 Active Shahid Hernández MD Personal history of fall Colorectal screening V76.51 Active Mary Lou Temple.Twan Screening for malignant neoplasms of colon Depression 311 Active Mary Lou Temple.[place]wan Depressive disorder, not elsewhere classified Dysuria 788.1 [...] hypertension CELLULITIS ICD-682.9 Inactive Natalee Drake MD UTI, acute ICD-599.0 Inactive Natalee Drake MD CELLULITIS 682.9 Resolved Natalee Drake MD Cellulitis and abscess of unspecified sites UTI, acute 599.0 Resolved Natalee Drake MD Urinary tract infection, site not specified Medication List Medication Instructions Start Date Stop Date Generic Name NDC Status Provider Patient Instruction FERROUS SULFATE 325 (65 Fe) MG ORAL TABLET DELAYED RELEASE 1 by mouth 2 times a daily FERROUS SULFATE 78662761287 Active Natalee Drake MD Active TERAZOL 7 0.4 % VAGINAL CREAM Insert 1 applicatorful intravaginally at bedtime for 7 consecutive days. TERCONAZOLE 23048672808 Active Natalee Drake MD Active LANCETS use to test blood sugars Three Times a Day LANCETS 23236179005 Active Pili Huerta CPHT Active ACCU-CHEK SHAYLA PLUS w/Device KIT use to test blood sugars Three Times a Day BLOOD GLUCOSE MONITORING SUPPL 60214497328 Active Pili Huerta CPHT Active ACCU-CHEK SHAYLA PLUS IN VITRO STRIP use to test blood sugars Three Times a Day GLUCOSE BLOOD 77192973152 Active Pili Huerta [facility] Active K-TAB 20 MEQ ORAL TABLET EXTENDED RELEASE Take one tablet once daily POTASSIUM CHLORIDE 01315198138 Active Natalee Drake MD Active LASIX 40 MG ORAL TABLET 1 by mouth every am FUROSEMIDE 12331834341 Active Natalee Drake MD Active BD INSULIN SYRINGE ULTRAFINE 31G X 5/16" 1 ML use as directed to dose insulin 2 times aday. INSULIN SYRINGE-NEEDLE U-100 19472030107 Active Natalee Drake MD Active METFORMIN HCL 500 MG ORAL TABLET 1 by mouth twice a day METFORMIN HCL 45217332773 Active Natalee Drake MD Active VERAPAMIL HCL ER 240 MG ORAL TABLET EXTENDED RELEASE 1 by mouth every day VERAPAMIL HCL 81835191295 Active Natalee Drake MD Active ASPIRIN 81 MG ORAL TABLET 1 by mouth every day ASPIRIN 07463422238 Active Nader Greco MD Active SIMVASTATIN 40 MG ORAL TABLET 1 by mouth every night SIMVASTATIN 20077635929 Active Natalee Drake MD Active AMITRIPTYLINE HCL 150 MG ORAL TABLET Take tablet By Mouth take at bedtime AMITRIPTYLINE HCL 37667173902 Active Pili Huerta SURFACE PLATE INSPECTOR Active BENAZEPRIL HCL 20 MG ORAL TABLET Take 1 tablet By Mouth daily BENAZEPRIL HCL 55420645671 Active Natalee Drake MD Active NOVOLOG MIX 70/30 (70-30) 100 UNIT/ML SUBCUTANEOUS SUSPENSION Take 40 units IM Twice a Day. INSULIN ASPART PROT & ASPART 38339363495 Active Erica Amaya LAPPING MACHINE TENDER Active ZANTAC 150 MG ORAL TABLET 1 by mouth twice a day RANITIDINE HCL 44238385867 Active Natalee Drake MD Active AMOXICILLIN 500 MG ORAL CAPSULE 1 by mouth 2 times a day AMOXICILLIN 500 MG ORAL CAPSULE 527636 AMOXICILLIN Inactive IBUPROFEN 800 MG ORAL TABLET 1 by mouth every 8 hours as needed IBUPROFEN 800 MG ORAL TABLET 238744 IBUPROFEN Inactive AMOXICILLIN 500 MG ORAL CAPSULE 1 by mouth 2 times a day AMOXICILLIN 500 MG ORAL CAPSULE 368712 AMOXICILLIN Inactive CLOTRIMAZOLE 1 % EXTERNAL CREAM apply Twice a Day to affected areas CLOTRIMAZOLE 1 % EXTERNAL CREAM 258697 CLOTRIMAZOLE Inactive BACTRIM DS 800-160 MG ORAL TABLET 1 tab by mouth twice a day BACTRIM DS 800-160 MG ORAL TABLET 997667 TRIMETHOPRIM-SULFAMETHOXAZOLE Inactive LASIX 20 MG ORAL TABLET 1 by mouth every am LASIX 20 MG ORAL TABLET 676460 FUROSEMIDE Inactive BACTRIM DS 800-160 MG ORAL TABLET 1 tab by mouth twice a day BACTRIM DS 800-160 MG ORAL TABLET 931459 TRIMETHOPRIM-SULFAMETHOXAZOLE Inactive TRAMADOL HCL 50 MG ORAL TABLET 1-2 tablets by mouth 4 times a day as needed for pain TRAMADOL HCL 50 MG ORAL TABLET 006528 TRAMADOL HCL Inactive AMOXICILLIN 500 MG ORAL CAPSULE 1 by mouth 2 times a day for 7 days AMOXICILLIN 500 MG ORAL CAPSULE 195774 AMOXICILLIN Inactive MUPIROCIN 2 % EXTERNAL OINTMENT MUPIROCIN 2 % EXTERNAL OINTMENT 463865 MUPIROCIN Inactive ZAZOLE 0.4 % VAGINAL CREAM Apply topically to vagina for 1 week ZAZOLE 0.4 % VAGINAL CREAM TERCONAZOLE Inactive AMOXICILLIN 500 MG ORAL CAPSULE 1 by mouth 2 times a day AMOXICILLIN 03701520701 No Longer Active Natalee Drake MD Active IBUPROFEN 800 MG ORAL TABLET 1 by mouth every 8 hours as needed IBUPROFEN 46639204308 No Longer Active Natalee Drake MD Active AMOXICILLIN 500 MG ORAL CAPSULE 1 by mouth 2 times a day AMOXICILLIN 78425688956 No Longer Active Natalee Drake MD Active ONETOUCH ULTRA BLUE IN VITRO STRIP use to test blood sugars Three Times a Day GLUCOSE BLOOD 21863986622 No Longer Active Pili Huerta SURFACE PLATE INSPECTOR Active CLOTRIMAZOLE 1 % EXTERNAL CREAM apply Twice a Day to affected areas CLOTRIMAZOLE 09302576131 No Longer Active Natalee Drake MD Active BACTRIM DS 800-160 MG ORAL TABLET 1 tab by mouth twice a day TRIMETHOPRIM-SULFAMETHOXAZOLE 55230238521 No Longer Active Natalee Drake MD Active LASIX 20 MG ORAL TABLET 1 by mouth every am FUROSEMIDE 16364504453 No Longer Active Natalee Drake MD Active BACTRIM DS 800-160 MG ORAL TABLET 1 tab by mouth twice a day TRIMETHOPRIM-SULFAMETHOXAZOLE 92576384015 No Longer Active Marcela Gillespie MD Active TRAMADOL HCL 50 MG ORAL TABLET 1-2 tablets by mouth 4 times a day as needed for pain TRAMADOL HCL 86051169876 No Longer Active Natalee Drake MD Active AMOXICILLIN 500 MG ORAL CAPSULE 1 by mouth 2 times a day for 7 days AMOXICILLIN 17040456644 No Longer Active Shahid Hernández MD Active MUPIROCIN 2 % EXTERNAL OINTMENT MUPIROCIN 81204551312 No Longer Active Natlaee Drake MD Active ZAZOLE 0.4 % VAGINAL CREAM Apply topically to vagina for 1 week TERCONAZOLE 47055939371 No Longer Active Natalee Drake MD Active Vital Signs Date Name Value Unit Range Description blood pressure, diastolic 70 mm[Hg] BP grimm blood pressure, systolic 153 mm[Hg] BP sys height E&M 69 [in_us] Bdy height pulse rate E&M 85 /min Heart rate respiratory rate E&M 14 /min Resp rate temperature E&M 98.7 [degF] Body temperature weight E&M 312.20 [lb_av] Weight Measured blood pressure, diastolic, second observation 69 mm[Hg] BP grimm blood pressure, diastolic 69 mm[Hg] BP grimm blood pressure, systolic, second observation 125 mm[Hg] BP sys blood pressure, systolic 125 mm[Hg] BP sys height E&M 69 [in_us] Bdy height pulse rate E&M 86 /min Heart rate respiratory rate E&M 22 /min Resp rate temperature E&M 98.7 [degF] Body temperature weight E&M 314.20 [lb_av] Weight Measured blood pressure, diastolic 65 mm[Hg] BP grimm blood pressure, systolic 133 mm[Hg] BP sys height E&M 69 [in_us] Bdy height pulse rate E&M 78 /min Heart rate respiratory rate E&M 16 /min Resp rate temperature E&M 99.1 [degF] Body temperature weight E&M 313.40 [lb_av] Weight Measured blood pressure, diastolic 68 mm[Hg] BP grimm blood pressure, systolic 153 mm[Hg] BP sys height E&M 69 [in_us] Bdy height pulse rate E&M 73 /min Heart rate respiratory rate E&M 16 /min Resp rate temperature E&M 98.6 [degF] Body temperature weight E&M 307 [lb_av] Weight Measured blood pressure, diastolic 69 mm[Hg] BP grimm blood pressure, systolic 162 mm[Hg] BP sys height E&M 69 [in_us] Bdy height pulse rate E&M 90 /min Heart rate respiratory rate E&M 25 /min Resp rate temperature E&M 99.1 [degF] Body temperature weight E&M 302.80 [lb_av] Weight Measured Diagnostic Results Date Name Value Unit Range Description Lab Report: Comp. Metabolic Panel (14), Urinalysis, Complete, Microscopi ... - Urinalysis mucus on urinalysis Present Not Estab. Lab Report: CBC With Differential/Platelet, Comp. Metabolic Panel (14), ... - Chemistry thyroid stimulating hormone, serum 1.570 u[iU]/mL 0.450-4.500 Lab Report: Comp. Metabolic Panel (14), Urinalysis, Complete, Microscopi ... - Urinalysis WBC urine on microscopy 6-10 /hpf {Cells}/[HPF] 0 - 5 Lab Report: Lipid Panel - Chemistry very low density lipoproteins 17 mg/dL 5-40 Lab Report: Comp. Metabolic Panel (14), Urinalysis, Complete, Microscopi ... - Urinalysis epithelial cells, urine 0-10 /[LPF] 0 - 10 Lab Report: CBC With Differential/Platelet, Comp. Metabolic Panel (14), ... - Chemistry chloride, serum 99 mmol/L 96-106 urea nitrogen, blood 10 mg/dL 8-27 Lab Report: Comp. Metabolic Panel (14), Urinalysis, Complete, Microscopi ... - Urinalysis leukocyte esterase, urine, by dipstick 2+ Negative Lab Report: CBC With Differential/Platelet, Comp. Metabolic Panel (14), ... - Hematology mean corpuscular hemoglobin concentration, RBC 32.6 G/DL % 31.5-35.7 erythrocyte (RBC) count 4.68 X10E6/UL 10*6/mm3 3.77-5.28 Lab Report: Comp. Metabolic Panel (14), Urinalysis, Complete, Microscopi ... - Urinalysis urine color Yellow Yellow Lab Report: CBC With Differential/Platelet, Comp. Metabolic Panel (14), ... - Chemistry Absolute Neutrophils 4.3 X10E3/UL 10*3/uL 1.4-7.0 Lab Report: Comp. Metabolic Panel (14), Urinalysis, Complete, Microscopi ... - Urinalysis bilirubin, urine Negative Negative Lab Report: Lipid Panel - Chemistry LDL cholesterol, serum 72 mg/dL 0-99 Lab Report: CBC With Differential/Platelet, Comp. Metabolic Panel (14), ... - Chemistry urea nitrogen/creatinine ratio, serum 12 12-28 Lab Report: CBC With Differential/Platelet, Comp. Metabolic Panel (14), ... - Hematology mean corpuscular volume, RBC 83 fL 79-97 Internal Correspondence: Pre-Visit Planning - CC care steamblaster #1, name Sarah Beth Loera Lab Report: Lipid Panel - Chemistry HDL cholesterol, serum 67 mg/dL >39 Lab Report: CBC With Differential/Platelet, Comp. Metabolic Panel (14), ... - Hematology monocytes as percent of blood leukocytes 7 % Not Estab. Lab Report: CBC With Differential/Platelet, Comp. Metabolic Panel (14), ... - Chemistry albumin/globulin ratio, serum 1.6 1.2-2.2 creatinine, serum 0.83 mg/dL 0.57-1.00 Lab Report: Lipid Panel - Chemistry cholesterol, serum 156 mg/dL 100-199 Lab Report: Comp. Metabolic Panel (14), Urinalysis, Complete, Microscopi ... - Chemistry creatinine, random, urine 54.2 mg/dL 15.0-278.0 Lab Report: CBC With Differential/Platelet, Comp. Metabolic Panel (14), ... - Chemistry bilirubin, serum, total 0.4 mg/dL 0.0-1.2 Lab Report: CBC With Differential/Platelet, Comp. Metabolic Panel (14), ... - Hematology Eosinophil Absolute Count 0.1 X10E3/UL 10*3/uL 0.0-0.4 Lab Report: Comp. Metabolic Panel (14), Urinalysis, Complete, Microscopi ... - Urinalysis appearance, urine Clear Clear Lab Report: CBC With Differential/Platelet, Comp. Metabolic Panel (14), ... - Chemistry aspartate aminotransferase (SGOT), serum 13 U/L 0-40 Lab Report: CBC With Differential/Platelet, Comp. Metabolic Panel (14), ... - Hematology red blood cell distribution width 19.0 % 12.3-15.4 Lab Report: Comp. Metabolic Panel (14), Urinalysis, Complete, Microscopi ... - Urinalysis urinalysis, microscopic examination See below: Lab Report: CBC With Differential/Platelet, Comp. Metabolic Panel (14), ... - Hematology leukocyte count, blood 7.1 X10E3/UL 10*3/mm3 3.4-10.8 Lab Report: Comp. Metabolic Panel (14), Urinalysis, Complete, Microscopi ... - Urinalysis pH, urine, semiquantitative 7.0 5.0-7.5 Lab Report: CBC With Differential/Platelet, Comp. Metabolic Panel (14), ... - Chemistry potassium, serum 4.3 mmol/L 3.5-5.2 immature granulocytes, percentage of total cells, blood 0 % Not Estab. albumin, serum 4.2 g/dL 3.6-4.8 Lab Report: CBC With Differential/Platelet, Comp. Metabolic Panel (14), ... - Hematology lymphocyte count, blood, automated 2.3 X10E3/UL 10*3/mm3 0.7-3.1 hematocrit, blood 38.9 % 34.0-46.6 Lab Report: CBC With Differential/Platelet, Comp. Metabolic Panel (14), ... - Chemistry sodium, serum 142 mmol/L 134-144 Lab Report: CBC With Differential/Platelet, Comp. Metabolic Panel (14), ... - Hematology neutrophils as percent of blood leukocytes 60 % Not Estab. basophils as percent of blood leukocytes 0 % Not Estab. Internal Correspondence: Pre-Visit Planning - Other List of providers caring for patient Dr. Darke and Phil Herrera Lab Report: Comp. Metabolic Panel (14), Urinalysis, Complete, Microscopi ... - Chemistry specific gravity, body fluid 1.010 1.005-1.030 RBC, Urine None seen /hpf /[HPF] 0 - 2 Lab Report: Comp. Metabolic Panel (14), Urinalysis, Complete, Microscopi ... - Urinalysis protein, urine, semiquantitative (dipstick) Negative Negative/Trace Lab Report: CBC With Differential/Platelet, Comp. Metabolic Panel (14), ... - Chemistry carbon dioxide, venous blood 24 mmol/L 18-29 Lab Report: Comp. Metabolic Panel (14), Urinalysis, Complete, Microscopi ... - Chemistry nitrate, urine Positive Negative Lab Report: Lipid Panel - Chemistry triglyceride, serum, fasting 87 mg/dL 0-149 Lab Report: CBC With Differential/Platelet, Comp. Metabolic Panel (14), ... - Chemistry calcium, serum 9.2 mg/dL 8.7-10.3 Lab Report: Comp. Metabolic Panel (14), Urinalysis, Complete, Microscopi ... - Chemistry microalbumin/creatinine ratio, urine 8.9 MG/G CREAT ug/mg 0.0-30.0 Lab Report: CBC With Differential/Platelet, Comp. Metabolic Panel (14), ... - Chemistry alanine aminotransferase (SGPT), serum 7 U/L 0-32 Office Visit: Adult Followup Room #9 - Chemistry blood glucose, fasting 94 mg/dL Lab Report: CBC With Differential/Platelet, Comp. Metabolic Panel (14), ... - Hematology mean corpuscular hemoglobin, RBC 27.1 pg 26.6-33.0 Lab Report: Comp. Metabolic Panel (14), Urinalysis, Complete, Microscopi ... - Urinalysis bacteria, urine microscopy Few None seen/Few Lab Report: CBC With Differential/Platelet, Comp. Metabolic Panel (14), ... - Chemistry protein, total, serum 6.9 g/dL 6.0-8.5 alkaline phosphatase, serum 68 U/L 39-117 Lab Report: CBC With Differential/Platelet, Comp. Metabolic Panel (14), ... - Hematology hemoglobin, blood 12.7 g/dL 11.1-15.9 Office Visit: Adult Followup- blood pressure 8 - Chemistry blood glucose, 2 hours postprandial 107 mg/dL Lab Report: CBC With Differential/Platelet, Comp. Metabolic Panel (14), ... - Hematology lymphocytes as percent of blood leukocytes 32 % Not Estab. Office Visit: Adult Followup- blood pressure 8 - Chemistry hemoglobin A1C, blood, as % of total hemoglobin 5.5 % Lab Report: Comp. Metabolic Panel (14), Urinalysis, Complete, Microscopi ... - Urinalysis glucose, urine, semiquantitative Negative Negative Lab Report: CBC With Differential/Platelet, Comp. Metabolic Panel (14), ... - Genetics/fertility eGFR if 86 mL/min/1.73m2 >59 Lab Report: CBC With Differential/Platelet, Comp. Metabolic Panel (14), ... - Hematology basophil count, absolute 0.0 x10E3/uL 0.0-0.2 Lab Report: CBC With Differential/Platelet, Comp. Metabolic Panel (14), ... - Chemistry globulin, serum 2.7 1.5-4.5 Estimated Glomerular Filtration Rate (calc) 74 mL/min/1.73m2 >59 Lab Report: Comp. Metabolic Panel (14), Urinalysis, Complete, Microscopi ... - Basic Occult Blood, urine Negative Negative Lab Report: Comp. Metabolic Panel (14), Urinalysis, Complete, Microscopi ... - Urinalysis microalbumin/total urine volume 4.8 mg/L 0.0-17.0 Lab Report: CBC With Differential/Platelet, Comp. Metabolic Panel (14), ... - Hematology eosinophils as percent of blood leukocytes 1 % Not Estab. Office Visit: Adult Followup///# 8_Noelle - Chemistry blood glucose, random 132 mg/dL Lab Report: Comp. Metabolic Panel (14), Urinalysis, Complete, Microscopi ... - Urinalysis urobilinogen, urine, semiquantitative (dipstick) 1.0 0.2-1.0 Lab Report: CBC With Differential/Platelet, Comp. Metabolic Panel (14), ... - Hematology monocyte count, blood, automated 0.5 X10E3/UL 10*3/uL 0.1-0.9 platelet count 223 X10E3/UL 10*3/mm3 150-379 Lab Report: Comp. Metabolic Panel (14), Urinalysis, Complete, Microscopi ... - Urinalysis ketones, urine, by test strip Negative Negative Encounters Date Encounter Provider Code Facility 14:48:20 A P SUPERVISOR Ofc Vst, Est Level IV Natalee Drake MD [id number] [facility] 14:39:51 CDT Ofc Vst, Est Level III Natalee Drake MD CPT-52403 [facility] 16:20:15 CDT Est Patient Exp Problem - 29270 Natalee Drake MD CPT-14528 [facility] 13:35:40 CDT Est Patient Exp Problem - 48171 Natalee Drake MD CPT-85801 [facility] 08:33:01 CDT Est Patient Exp Problem - 78459 Natalee Drake MD CPT-54344 [facility] 16:55:18 CDT Est Patient Detailed - 58852 Natalee Drake MD CPT-31567 [facility] 18:26:48 CDT Est Patient Exp Problem - 45114 Mary Lou Berg D.O. CPT-31090 [facility] 14:53:05 CDT Est Patient Exp Problem - 37557 Natalee Drake MD CPT-70666 [facility] 19:44:26 A P SUPERVISOR Est Patient Exp Problem - 22996 Natalee Drake MD CPT-43933 [facility] 15:51:41 A P SUPERVISOR Est Patient Detailed - 92570 Natalee Drake MD CPT-73614 [facility] 11:42:41 CDT Est Patient Exp Problem - 24640 Natalee Drake MD CPT-78497 [facility] 10:49:34 CDT Est Patient Exp Problem - 81777 Natalee Drake MD CPT-19396 [facility] 17:35:33 CDT Est Patient Detailed - 05513 Natalee Drake MD CPT-30922 [facility] 22:45:17 CDT Est Patient Exp Problem - 90751 Diana Schwartz MD CPT-06555 [facility] 10:30:05 A P SUPERVISOR Est Patient Exp Problem - 51181 Shahid Hernández MD CPT-92185 [facility] 14:42:00 CDT Est Patient Exp Problem - 64593 Mary Lou Berg D.O. CPT-19428 [facility] 06:23:49 CDT Est Patient Exp Problem - 00392 Diana Schwartz MD CPT-33235 [facility] 18:27:41 CDT Est Patient Exp Problem - 51977 Ashish Ortiz MD CPT-42982 [facility] 18:39:28 CDT New Patient Exp Problem - 88886 Ashish Ortiz MD CPT-20988 [facility] Procedures Code Procedure Name Date Entry Date Standard Description CPT-11594 Glucose Stick 13:05:55 A P SUPERVISOR CPT-87000 Est Patient Well Exam (65 & Over) - 63760 10:43:51 CDT
--- OUTSIDE RECORDS SUMMARY | 2018-12-06 14:35 | XMS REPORT | Clinical Summary ---
Author Author [facility] Organization [facility] Address Unknown Phone Unavailable Care Team Providers Care Media Executive Name Role Phone Becky Park MD PCP Allergies Comments Active Allergy Reactions Severity Noted Date Azithromycin Hives, GI 10/12/2018 Intolerance Medications End Date Status Medication Sig Dispensed Refills Start Date 10/20/2018 clindamycin (CLEOCIN) 150 Take 3 84 capsule 0 MG capsule capsules (450 8 mg total) by mouth 4 (four) times a day for 7 days. 10/23/2018 acetaminophen-codeine Take 1-2 10 tablet 0 (TYLENOL WITH CODEINE #3) tablets by 8 300-30 mg per tablet mouth every 6 (six) hours as needed for moderate pain for up to 10 days. Active Problems Not on file Encounters Care Team Description Date Type Specialty Emigdio Groves DO Diabetic ulcer of toe of right foot associated with diabetes mellitus due to underlying condition, with fat layer exposed (HCC) (Primary Dx) 10/13/2018 Emergency Emergency Medicine after 12/05/2017 Social History Date Tobacco Use Types Packs/Day Years Used Never Smoker Smokeless Tobacco: Never Used Alcohol Use Drinks/Week oz/Week Comments No Alcohol Habits Answer Date Recorded How often do you have a drink containing alcohol? Never 10/13/2018 How many drinks containing alcohol do you have on Not asked a typical day when you are drinking? How often do you have six or more drinks on one Not asked occasion? Sex Assigned at Date Recorded Not on file Industry Job Start Date Occupation Not on file Not on file Not on file Travel End Travel History Travel Start No recent travel history available. Last Filed Vital Signs Time Taken Vital Sign Reading 10/13/2018 2:39 AM SPORTS CARTOONIST Blood Pressure 148/72 10/13/2018 2:39 AM SPORTS CARTOONIST Pulse 77 10/12/2018 11:19 PM SPORTS CARTOONIST Temperature 36.7 C (98 F) 10/13/2018 2:39 AM SPORTS CARTOONIST Respiratory Rate 19 10/13/2018 2:39 AM SPORTS CARTOONIST Oxygen Saturation 100% - Inhaled Oxygen - Concentration 10/12/2018 11:20 PM SPORTS CARTOONIST Weight 132 kg (290 lb) 10/12/2018 11:20 PM SPORTS CARTOONIST Height 175.3 cm (5' 9") 10/12/2018 11:20 PM SPORTS CARTOONIST Body Mass Index 42.83 Plan of Treatment Health Maintenance Due Date Last Done Comments DIABETIC RETINAL EYE EXAM 1950 DIABETIC FOOT EXAM 1962 URINE MICROALBUMIN 1962 BREAST CANCER SCREENING 2002 COLON CANCER SCREENING 2002 SHINGLES VACCINES (1 of 2002 2) PNEUMOCOCCAL 2017 POLYSACCHARIDE VACCINE AGE 65 AND OVER PNEUMOCOCCAL-13 2017 INFLUENZA VACCINE 06/14/2018 Procedures Comments Procedure Name Priority Date/Time Associated Diagnosis XR FOOT 3+ VW RIGHT STAT 10/13/2018 1:41 AM SPORTS CARTOONIST ESTIMATED GFR Timed 10/13/2018 12:47 AM SPORTS CARTOONIST LACTIC ACID LEVEL, SEPSIS Timed 10/13/2018 - NOW AND REPEAT 2X EVERY 12:47 AM SPORTS CARTOONIST 3 HOURS COMPREHENSIVE METABOLIC Timed 10/13/2018 PANEL 12:47 AM SPORTS CARTOONIST HC COMPLETE BLD COUNT Timed 10/13/2018 W/AUTO DIFF 12:47 AM SPORTS CARTOONIST BLOOD CULTURE, AEROBIC & Routine 10/13/2018 ANAEROBIC 12:47 AM SPORTS CARTOONIST BLOOD CULTURE, AEROBIC & Routine 10/13/2018 ANAEROBIC 12:37 AM SPORTS CARTOONIST after 12/05/2017 Results * XR Foot 3+ Vw Right (10/13/2018 1:41 AM SPORTS CARTOONIST) Narrative Performed At XR FOOT 3VW RIGHT HM [facility] CLINICAL INDICATION:Osteomyelitis suspectedfoot swellingdiabetic COMPARISON:None. IMPRESSION: There is flexion of all the toe interphalangeal joints, limiting evaluation of the phalanges. Allowing for this limitation, no osseous destruction or aggressive periostitis is identified to suggest acute osteomyelitis. There is no acute fracture or dislocation. The bones are demineralized. There are degenerative changes of the midfoot and hindfoot. [id number] Procedure Note Hm Interface, Radiology Results Incoming - 10/13/2018 1:47 AM SPORTS CARTOONIST XR FOOT 3 VW RIGHT CLINICAL INDICATION: Osteomyelitis suspected foot swelling diabetic COMPARISON: None. IMPRESSION: There is flexion of all the toe interphalangeal joints, limiting evaluation of the phalanges. Allowing for this limitation, no osseous destruction or aggressive periostitis is identified to suggest acute osteomyelitis. There is no acute fracture or dislocation. The bones are demineralized. There are degenerative changes of the midfoot and hindfoot. [id number] Performing Organization Address [facility]/Zipcode Phone Number [facility] [address] [place] [address] * Estimated GFR (10/13/2018 12:47 AM SPORTS CARTOONIST) Estimated GFR 77 mL/min/1.[address] [facility] Comment: [facility] CatergoryUnitsInte rpretation G1 >=90 Normal or high G2 60-89Mildly decreased Y3x99-28 Mildly to moderately decreased [id number] Moderately to severely decreased G4 15-29Severely decreased G5 <15Kidney failure The eGFR was calculated using the Chronic Kidney Disease Epidemiology Collaboration (CKD-EPI) equation. Interpretation is based on recommendations of the National Kidney Foundation-Kidney Disease Outcomes Quality Initiative (NKF-KDOQI) published in 2014. Specimen Plasma specimen Performing Organization Address [facility] Phone Number [facility] DEPARTMENT OF [address] [place] [address] PATHOLOGY AND GENOMIC MEDICINE [place] [address] * Lactic acid level, SEPSIS - Now and repeat 2x every 3 hours (10/13/2018 12:47 AM SPORTS CARTOONIST) Lactic acid 0.9 0.5 - 2.2 mmol/L [facility] Specimen Blood Performing Organization Address City/[facility] Phone Number [facility] DEPARTMENT [address] [place] [address] PATHOLOGY AND GENOMIC MEDICINE [place] [address] * Blood culture, aerobic & anaerobic (10/13/2018 12:47 AM SPORTS CARTOONIST) Only the most recent of 2 results within the time period is included. Blood culture isolate No growth after [address] [facility] incubation. HOSPITAL Comment: Specimen Information Specimen Source: Blood Specimen Site: RIGHT HAND Specimen Blood Performing Organization Address City/State/Zipcode Phone Number [facility] DEPARTMENT OF [address] [place] [address] PATHOLOGY [place] [address] HOSPITAL * CBC with platelet and differential (10/13/2018 12:47 AM SPORTS CARTOONIST) WBC 10.3 4.2 - 11.0 k/uL [facility] RBC 4.37 4.04 - 5.86 m/uL [facility] HGB 12.6 11.5 - 15.3 g/dL [facility] HCT 36.8 34.0 - 45.0 % [facility] MCV 84.2 80.0 - 98.0 fL [facility] MCH 28.8 27.0 - 34.0 pg [facility] MCHC 34.2 31.5 - 36.5 g/dL [facility] RDW - SD 47.8 37.0 - 51.0 fL [facility] MPV 9.7 7.4 - 10.4 fL [facility] Platelet count 256 150 - 400 k/uL [facility] Nucleated RBC 0.00 /100 WBC [facility] Neutrophils 77.5 (H) 36.0 - 66.0 % [facility] Lymphocytes 14.3 (L) 24.0 - 44.0 % [facility] Monocytes 6.6 (H) 0.0 - 6.0 % [facility] Eosinophils 0.9 0.0 - 6.0 % [facility] Basophils 0.3 0.0 - 1.2 % [facility] Immature granulocytes 0.4 0.0 - 1.0 % [facility] Specimen Blood Performing Organization Address City/State/Zipcode Phone Number [facility] DEPARTMENT OF [address] [place] [address] PATHOLOGY AND GENOMIC MEDICINE [facility] [address] [place], [place] [phone] [place] [address] * Comprehensive metabolic panel (10/13/2018 12:47 AM SPORTS CARTOONIST) Sodium 141 135 - 150 mEq/L [facility] Potassium 3.5 3.5 - 5.0 mEq/L [facility] Chloride 101 98 - 112 mEq/L [facility] CO2 29 24 - 31 mmol/L [facility] Anion gap 11@ANIO 7 - 15 mEq/L [facility] BUN 9 7 - 18 mg/dL [facility] Creatinine 0.80 0.50 - 0.90 mg/dL [facility] Glucose 100 65 - 100 mg/dL [facility] Calcium 9.4 8.8 - 10.2 mg/dL [facility] Protein 7.2 6.3 - 8.3 g/dL [facility] Albumin 3.6 3.5 - 5.0 g/dL [facility] A/G ratio 1.0 0.7 - 3.8 [facility] Alkaline phosphatase 66 0 - 104 U/L [facility] AST 17 10 - 35 U/L [facility] ALT 12 5 - 50 U/L [facility] Total bilirubin 0.3 0.2 - 1.2 mg/dL [facility] Specimen Plasma specimen Performing Organization Address City/State/Zipcode Phone Number [facility] [address] [place] [address] PATHOLOGY AND GENOMIC MEDICINE [facility] [address] [place], [place] [id number] [place] [address] after 12/05/2017 Insurance Payer Benefit Subscriber ID Type Phone Address Plan / Group MEDICARE MEDICARE xxxxxxxxxx Medicare [place], [place] PART A [place] B Advance Directives Patient has advance care planning documents on file. For more information, gage christianson contact: Fahad Cotton [address] [place] [address]
--- OUTSIDE RECORDS SUMMARY | 2018-12-06 14:35 | XMS REPORT ---
Author Author [facility] Address Unknown Phone Unavailable Care Team Providers Care Sport Psychologist Name Role Phone MELISA PHILLIP Unavailable Unavailable Problems This patient has no known problems. Allergies, Adverse Reactions, Alerts This patient has no known allergies or adverse reactions. Medications This patient has no known medications. Results Test Description Test Time Test Comments Text Results Atomic Results Result Comments MRI FOOT RIGHT WO 2018-11-20 15:40:00 [facility] [address] [place] [address] Patient Name: SHAYE VALENTIN MR #: [id number] : 1950 Age/Sex: 68/F Req #: [id number] Adm Physician: Ordered by: MELISA PHILLIP DPM Report #: [id number] Location: DX Room/Bed: Procedure: [id number] MRI/MRI FOOT RIGHT WO Exam Date: Exam Time: REPORT STATUS: Signed TECHNIQUE: Magnetic resonance imaging of the RIGHT foot (hindfoot) was performed WITHOUT injected contrast. HISTORY: Pressure ulcer, right heel COMPARISON: None available. DISCUSSION: Bone: Moderate bone marrow edema within the dorsal calcaneus Confluent dorsal decreased subcortical fatty marrow signal. Joints: Trace nonspecific tibiotalar and subtalar joint effusions. No dislocation. Soft Tissues: Dorsal soft tissue defect with marked regional edema, but no drainable fluid collection. IMPRESSION: 1. Dorsal calcaneal osteomyelitis. 2. No soft tissue abscess. Signed by: Dr. Pau Vo D.O., M.M.M. on 11/20/2018 3:46 PM Dictated By: PAU VO DO 1546 Transcribed By: HAYLEY on 11/20/18 1546 COPY TO: MELISA PHILLIP DPM CHEST XRAY LINE PLACEMENT 2018-11-20 11:22:00 [place] [address] Patient Name: SHAYE VALENTIN MR #: [id number] : 1950 Age/Sex: 68/F Req #: [id number] Adm Physician: Ordered by: MELISA PHILLIP DPM Report #: [id number] Location: DX Room/Bed: Procedure: [id number] DX/CHEST XRAY LINE PLACEMENT Exam Date: 11/20/18 Exam Time: 1113 REPORT STATUS: Signed EXAM: CHEST XRAY LINE PLACEMENT, AP Portable DATE: 11/20/2018 9:27 AM Time stamp on exam: 9:56 AM INDICATION: PICC placement COMPARISON: None FINDINGS: LINES/TUBES: Left-sided PICC terminates with the tip overlying the SVC. LUNGS: No consolidations or edema. PLEURA: No effusions or pneumothorax. HEART AND MEDIASTINUM: Normal size and contour. BONES AND SOFT TISSUES: No acute findings. IMPRESSION: No acute thoracic abnormality. Signed by: Dr. Isha Carbajal DO on 11/20/2018 11:23 AM Dictated By: ISHA CARBAJAL DO 1123 Transcribed By: HAYLEY on 11/20/181122 COPY TO: MELISA PHILLIP DPM
--- NOTE | 2018-12-06 14:50 | NUR ---
Pt mod assist to stand from WC & pivot to hospital bed. Pt positioned to comfort. Gretta-care provided at this time. Lt heel dressing removed for assessment. See assessment for details. Pt & son updated on plan of care, understanding verbalized.
[2018-12-06] MEDS ORDERED: MORPHINE SULFATE 2 MG/ML SYR 1ML IV STA (15:32)
[2018-12-06] MEDS ORDERED: MORPHINE SULFATE INJ 4 MG/ML INJ 1ML IV ONE (15:45)
[2018-12-06 16:23] LABS: BASOPHILS % 0.2 % (0.0-1.0); EOSINOPHILS # (AUTO) 0.3 (0.0-0.4); HEMATOCRIT 29.9 % (34.2-44.1); HEMOGLOBIN 9.8 g/dL (12.0-16.0); LYMPHOCYTES # (AUTO) 1.3 (1.0-3.2); LYMPHOCYTES % 7.9 % (18.0-39.1); MEAN CORPUSCULAR HEMOGLOBIN 26.3 pg (28-32); MEAN CORPUSCULAR HGB CONC 32.8 g/dL (31-35); MEAN CORPUSCULAR VOLUME 80.2 fL (81-99); MONOCYTES # (AUTO) 1.3 (0.2-0.8); MONOCYTES % 7.6 % (4.4-11.3); NEUTROPHILS # (AUTO) 13.2 (2.1-6.9); NEUTROPHILS % 80.8 % (38.7-80.0); PLATELET COUNT 319 x10e3/uL (140-360); RED BLOOD COUNT 3.73 x10e6/uL (3.6-5.1); RED CELL DISTRIBUTION WIDTH 15.9 % (11.7-14.4)
--- OUTSIDE RECORDS SUMMARY | 2018-12-06 16:54 | XMS REPORT | Clinical Summary ---
Author Author [facility] Organization [facility] Address Unknown Phone Unavailable Care Team Providers Care Facer Operator Name Role Phone Becky Park MD PCP [...] Taken Vital Sign Reading 10/13/2018 2:39 AM PROJECT SAFETY MANAGER Blood Pressure 148/72 10/13/2018 2:39 AM PROJECT SAFETY MANAGER Pulse 77 10/12/2018 11:19 PM PROJECT SAFETY MANAGER Temperature 36.7 C (98 F) 10/13/2018 2:39 AM PROJECT SAFETY MANAGER Respiratory Rate 19 10/13/2018 2:39 AM PROJECT SAFETY MANAGER Oxygen Saturation 100% - Inhaled Oxygen - Concentration 10/12/2018 11:20 PM PROJECT SAFETY MANAGER Weight 132 kg (290 lb) 10/12/2018 11:20 PM PROJECT SAFETY MANAGER Height 175.3 cm (5' 9") 10/12/2018 11:20 PM PROJECT SAFETY MANAGER Body Mass Index 42.83 Plan of Treatment [...] 3+ VW RIGHT STAT 10/13/2018 1:41 AM PROJECT SAFETY MANAGER ESTIMATED GFR Timed 10/13/2018 12:47 AM PROJECT SAFETY MANAGER LACTIC ACID LEVEL, SEPSIS Timed 10/13/2018 - NOW AND REPEAT 2X EVERY 12:47 AM PROJECT SAFETY MANAGER 3 HOURS COMPREHENSIVE METABOLIC Timed 10/13/2018 PANEL 12:47 AM PROJECT SAFETY MANAGER HC COMPLETE BLD COUNT Timed 10/13/2018 W/AUTO DIFF 12:47 AM PROJECT SAFETY MANAGER BLOOD CULTURE, AEROBIC & Routine 10/13/2018 ANAEROBIC 12:47 AM PROJECT SAFETY MANAGER BLOOD CULTURE, AEROBIC & Routine 10/13/2018 ANAEROBIC 12:37 AM PROJECT SAFETY MANAGER after 12/05/2017 Results * XR Foot 3+ Vw Right (10/13/2018 1:41 AM PROJECT SAFETY MANAGER) Narrative Performed At XR FOOT 3VW RIGHT [...] degenerative changes of the midfoot and hindfoot. [facility]-[id number] Procedure Note Hm Interface, Radiology Results Incoming - 10/13/2018 1:47 AM PROJECT SAFETY MANAGER XR FOOT 3 VW RIGHT CLINICAL INDICATION: [...] degenerative changes of the midfoot and hindfoot. [facility]-[id number] Performing Organization Address [facility]/Zipcode Phone Number [facility] [address] [place] [address] * Estimated GFR (10/13/2018 12:47 AM PROJECT SAFETY MANAGER) Estimated GFR 77 mL/min/1.73 m2 [facility] Comment: [facility] CatergoryUnitsInte rpretation G1 >=90 Normal or high G2 60-89Mildly decreased K7d63-57 Mildly to moderately decreased L8r25-57 Moderately to severely decreased G4 15-29Severely decreased G5 <15Kidney failure The eGFR was calculated using the Chronic Kidney Disease Epidemiology Collaboration (CKD-EPI) equation. Interpretation is based on recommendations of the National Kidney Foundation-Kidney Disease Outcomes Quality Initiative (NKF-KDOQI) published in 2014. Specimen Plasma specimen Performing Organization Address [facility] Phone Number [facility] DEPARTMENT OF [address] [place] [address] PATHOLOGY AND GENOMIC MEDICINE [place] [address] * Lactic acid level, SEPSIS - Now and repeat 2x every 3 hours (10/13/2018 12:47 AM PROJECT SAFETY MANAGER) Lactic acid 0.9 0.5 - 2.2 mmol/L [facility] Specimen Blood Performing Organization Address City/[facility] Phone Number [facility] DEPARTMENT [address] [place] [address] PATHOLOGY AND GENOMIC MEDICINE [place] [phone] * Blood culture, aerobic & anaerobic (10/13/2018 12:47 AM PROJECT SAFETY MANAGER) Only the most recent of 2 results within the time period is included. Blood culture isolate No growth after 5 days of [facility] incubation. HOSPITAL Comment: Specimen Information Specimen Source: Blood Specimen Site: RIGHT HAND Specimen Blood Performing Organization Address City/State/Zipcode Phone Number [facility] DEPARTMENT OF [address] [place] [address] PATHOLOGY [place] [address] HOSPITAL * CBC with platelet and differential (10/13/2018 12:47 AM PROJECT SAFETY MANAGER) WBC 10.3 4.2 - 11.0 k/uL [facility] RBC 4.37 4.04 - 5.86 m/uL [facility] HGB 12.6 11.5 - 15.3 g/dL [facility] HCT 36.8 34.0 - 45.0 % [facility] MCV 84.2 80.0 - 98.0 fL [facility] MCH 28.8 27.0 - 34.0 pg [facility] MCHC 34.2 31.5 - 36.5 g/dL [facility] RDW - SD 47.8 37.0 - 51.0 fL [facility] MPV 9.7 7.4 - 10.4 fL [facility] Platelet count 256 150 - 400 k/uL [facility] Nucleated RBC 0.00 /100 WBC [facility] Neutrophils 77.5 (H) 36.0 - 66.0 % [facility] Lymphocytes 14.3 (L) 24.0 - 44.0 % [facility] Monocytes 6.6 (H) 0.0 - 6.0 % [facility] Eosinophils 0.9 0.0 - 6.0 % [facility] Basophils 0.3 0.0 - 1.2 % [facility] Immature granulocytes 0.4 0.0 - 1.0 % [facility] Specimen Blood Performing Organization Address City/State/Zipcode Phone Number [facility] DEPARTMENT OF [address] [place] [address] PATHOLOGY AND GENOMIC MEDICINE [facility] [address] [place], [place] [id number] [place] [address] * Comprehensive metabolic panel (10/13/2018 12:47 AM PROJECT SAFETY MANAGER) Sodium 141 135 - 150 mEq/L [facility] Potassium 3.5 3.5 - 5.0 mEq/L [facility] Chloride 101 98 - 112 mEq/L [facility] CO2 29 24 - 31 mmol/L [facility] Anion gap 11@ANIO 7 - 15 mEq/L [facility] BUN 9 7 - 18 mg/dL [facility] Creatinine 0.80 0.50 - 0.90 mg/dL [facility] Glucose 100 65 - 100 mg/dL [facility] Calcium 9.4 8.8 - 10.2 mg/dL [facility] Protein 7.2 6.3 - 8.3 g/dL [facility] Albumin 3.6 3.5 - 5.0 g/dL [facility] A/G ratio 1.0 0.7 - 3.8 [facility] Alkaline phosphatase 66 0 - 104 U/L [facility] AST 17 10 - 35 U/L [facility] ALT 12 5 - 50 U/L [facility] Total bilirubin 0.3 0.2 - 1.2 mg/dL [facility] Specimen Plasma specimen Performing Organization Address City/State/Zipcode Phone Number [facility] OF [address] [place] [address] PATHOLOGY AND GENOMIC MEDICINE [facility] [address] [place], [place] [phone] [place] [address] after 12/05/2017 Insurance Payer Benefit Subscriber ID Type Phone Address Plan / Group MEDICARE MEDICARE xxxxxxxxxx Medicare [place], [place] PART A AND B Advance Directives Patient has advance care planning documents on file. For more information, gage christianson contact: Fahad Cotton [address] [place] [address]
[2018-12-06 17:14] LABS: ALBUMIN 2.1 g/dL (3.5-5.0); ALBUMIN/GLOBULIN RATIO 0.6 (0.8-2.0); ANION GAP 15.4 mmol/L (8-16); CALCIUM 8.3 mg/dL (8.4-10.2); CREATININE, SERUM 1.25 mg/dL (0.57-1.11); POTASSIUM 3.4 mmol/L (3.5-5.1)
[2018-12-06] MEDS ORDERED: DEXTROSE 50% SYRINGE 50 ML IV PRN (17:15)
[2018-12-06] MEDS: ERTAPENEM 1GM/NS 100ML 100 ML IV SCH (17:25)
[2018-12-06] MEDS: VANCOMYCIN HCL 1.5 GM in SODIUM CHLORIDE 0.9% 250ML 300 ML IV SCH (17:28)
[2018-12-06] MEDS: INSULIN REGULAR, HUMAN 100 UNIT/1 ML 3ML VIAL SQ SCH ×2 (18:13→22:31)
--- NOTE | 2018-12-06 19:10 | NUR ---
Walking rounds done with Siobhan HARDWICK shift supervisor nurse.
--- NOTE | 2018-12-06 19:20 | NUR ---
Dressing applied to right heel and right great toe where stage wounds are located.
[2018-12-06] MEDS ORDERED: AMITRIPTYLINE150 MG PO (22:45)
[2018-12-06] MEDS ORDERED: METFORMIN HCL500 MG PO (22:45)
[2018-12-07] MEDS ORDERED: ACETAMINOPHEN 1000 MG/100 ML 100 ML IV ONE (04:47)
[2018-12-07] MEDS ORDERED: ACETAMINOPHEN 1000 MG/100 ML IV STA (05:03)
--- NOTE | 2018-12-07 07:00 | NUR ---
Pt is noted to be resting comfortably in bed appearing to be in no distress. Pt refuses pain medication offered it at this time.
--- NOTE | 2018-12-07 07:05 | NUR ---
Bedside rounds completed with Siobhan HARDWICK manufacturing supervisor 2nd shift nurse.
--- NOTE | 2018-12-07 07:10 | NUR ---
Dr. Nunez noted to be doing bedside rounds.
[2018-12-07] MEDS ORDERED: NON-FORMULARY MEDICATION (Insuln Asp Prt/Insulin Aspart (Novolog Mix 70-30 Flexpen Syrn) 4 SQ SCH (07:15)
[2018-12-07] MEDS ORDERED: NON-FORMULARY MEDICATION (Insuln Asp Prt/Insulin Aspart (Novolog Mix 70-30 Flexpen Syrn) 6 SQ SCH (07:15)
[2018-12-07] MEDS: BENAZEPRIL HCL 10 MG TAB PO SCH (08:10)
[2018-12-07] MEDS: INSULIN REGULAR, HUMAN 100 UNIT/1 ML 3ML VIAL SQ SCH ×4 (08:11→21:00)
[2018-12-07] MEDS: INSULIN ASPART 70/30 100 UNITS/ML VIAL SC SCH ×2 (08:12→21:00)
[2018-12-07] MEDS: AMITRIPTYLINE HCL 25 MG TAB PO SCH (08:12)
--- NOTE | 2018-12-07 08:43 | Consultation ---
DATE OF CONSULTATION: December 07, 2018 INFECTIOUS DISEASE INITIAL CONSULTATION This is a 68-year-old female who presents [facility] ER from an outpatient wound clinic for a nonhealing right heel diabetic foot ulcer. This has been present for over 6 months. She has been having weekly treatments at the outpatient wound clinic under Dr. Madonna Vo of podiatry. Approximately, 3-4 days ago she heard a cracking sound whenever she was walking and had a significant amount of pain, and was unable to walk on her foot afterwards. She has been on IV antibiotics since November 22, 2018, of vancomycin and Invanz without any improvement in the heel. Right lower extremity is double the size of the left lower extremity. There is cellulitis from the foot all the way up to above the knee. The patient describes 8/10 pain, and is concerned about losing her foot. Arterial Dopplers and venous Dopplers have been done pending interpretation. MRI has been ordered. PAST MEDICAL HISTORY: Diabetes mellitus, type 2, hypertension, lymphedema, chronic venous insufficiency, bilateral foot diabetic foot ulcers, most recently right diabetic foot ulcer. ALLERGIES: NO KNOWN DRUG ALLERGIES. MEDICATIONS: See MAR. Currently, on vancomycin 1.5 g IV q.24 h. and Invanz 1 g q.24 h. IV. SOCIAL HISTORY: Denies tobacco, ETOH or illicit drug use. FAMILY HISTORY: Noncontributory. REVIEW OF SYSTEMS: A 14-point review of systems was conducted. See HPI for positives. PHYSICAL EXAMINATION VITALS: Blood pressure 117/53, heart rate 84, respirations 17, temp afebrile. GENERAL: She is awake, alert and oriented times 3. Occasional confusion. HEENT: Head is normocephalic and atraumatic. PERRLA. Extraocular movements intact. LUNGS: Clear to auscultation bilaterally. Symmetric breath expansion. CARDIOVASCULAR: Normal S1 and S2. Regular rate and rhythm. ABDOMEN: Soft and nontender. Morbidly obese. Bowel sounds present times 4. EXTREMITIES: Three plus pitting edema. Lower extremity cellulitis to the right lower extremity with infected nonhealing diabetic foot ulcer to the right heel, Nance's grade 3 most likely. Left lower extremity lymphedema. No pitting at this time. LABS: This day on December 07, 2018, sodium 134, potassium 3.4, chloride 98, CO2 24, BUN of 9, creatinine of 1.25, glucose of 305. White blood cell count 16.3, hemoglobin 9.8, hematocrit 29.9, and platelets 319,000. AST 79, ALT 68, 43. RADIOLOGY: MRI has been ordered and it is pending. Arterial Dopplers and venous Dopplers of bilateral lower extremities have been conducted and are pending interpretation at this time. Wound cultures have been obtained and are pending at this time. Blood cultures have been obtained and are pending at this time. ASSESSMENT 1. Sepsis secondary to right foot diabetic foot ulcer. 2. Nonhealing right foot diabetic foot ulcer, Nance's grade 3. 3. Cellulitis of right lower extremity. 4. Lymphedema of bilateral lower extremities. 5. Diabetes mellitus, type 2. 6. Hypertension. RECOMMENDATIONS: Will continue vancomycin, Invanz. MRI is currently pending. Further recommendations to follow after MRI results. Will discuss case with and Dr. Nelson. Thank you, Dr. Nunez, for the consultation. We will follow the patient along with you. DICTATED BY SASHA ROD NP Job#: [id number] [place]
[2018-12-07] MEDS ORDERED: NON-FORMULARY MEDICATION (Amitriptyline Hcl 150 MG) PO SCH (09:00)
--- NOTE | 2018-12-07 11:00 | NUR ---
Pt requesting to go to BR at this time. Pt's bedding noted to be saturated with urine. Bedding noted to have 2 large brown circular stains extending past absorbent pads. States she did not realize she had episodes of incontinence. WC to bedside, shoes placed on feet, up with max assistance. Taken via WC to BR. Pt had loose BM. Pt unable to clean self w/out exertion. Pericare provided. Returned to room. Bed linens removed, bed sanitized, clean linens applied. Assisted back to bed, mod assistance. Repositioned to comfort.
--- NOTE | 2018-12-07 12:00 | NUR ---
MRI here for transport. Pt tx'd from hospital bed to MRI table via slide board. Pt off unit to MRI.
--- NOTE | 2018-12-07 13:37 | Consultation ---
DATE OF CONSULTATION: December 07, 2018 CARDIOLOGY CONSULTATION REASON FOR CONSULT: Right lower extremity ulcers. CHIEF COMPLAINT: Right lower extremity pain. HPI: Patient is a 68-year-old female with a history of diabetes, hypertension, morbid obesity with chronic right lower extremity wounds that are nonhealing. She had wounds on her right heel, as well as toe. She has chronic severe lower extremity edema bilaterally. Denies any chest pain or shortness of breath. No orthopnea or PND. No previous cardiovascular history. Never had a cath or intervention on her lower extremities at any point. We are consulted for evaluation and treatment for suspected PAD and nonhealing ulcers. REVIEW OF SYSTEMS: As per the HPI, otherwise negative. FAMILY HISTORY: No family history of early CAD or sudden cardiac . SOCIAL HISTORY: Patient does not smoke, drink or abuse drugs. OUTPATIENT MEDICATIONS: Reviewed. PHYSICAL EXAMINATION VITAL SIGNS: Temperature 99.5, pulse 89, respiratory rate 18, blood pressure 122/63, satting 100% on nasal cannula. GENERAL: Morbidly obese female in no acute distress. CARDIOVASCULAR: Exam very difficult, due to body habitus. Barely audible heart sounds. Regular rate and rhythm. A 2/6 early systolic murmur heard in the right upper sternal border and left upper sternal border. LUNGS: Decreased breath sounds bilaterally at the bases. ABDOMEN: Morbidly obese, soft, and nontender. EXTREMITIES: Significant edema of bilateral lower extremities with chronic venous stasis changes. She also has nonhealing ulcers of right heel and toe that are with dressing in place. No ulcerations of the left foot. LABORATORY DATA: Reviewed. Notable for white blood cell count of 16.3, hemoglobin of 9.8. Creatinine of 1.25 with GFR of 52. IMAGING DATA: Reviewed. Ultrasound imaging of the arterial system right lower extremity shows increased velocities and monophasic wave forms from the common femoral all the way down to the toe concerning for severe peripheral arterial disease at multiple levels. ASSESSMENT AND PLAN 1. Nonhealing foot ulcers of right lower extremity. 2. Peripheral arterial disease of the right lower extremity per arterial Doppler. 3. Hypertension. 4. Hyperlipidemia. 5. Diabetes. PLAN: Will plan for peripheral angiography and intervention of the right lower extremity tomorrow scheduled for 11 a.m. Please keep the patient n.p.o. after midnight. Continue optimal medical therapy and risk factor control otherwise. Thank you for this consult. Will continue to follow. Job#: [id number] RI
--- NOTE | 2018-12-07 13:42 | Diagnostic Imaging Report ---
MRI of the right foot without contrast. History: Infection. Foot wound. Diabetic ulcer. Heel infection. Decreased range of motion. Technique: Multiplanar multisequence MRI of the right foot without contrast Comparison: None Findings: Skin defect with ulceration and adjacent skin thickening and abnormal soft tissue edema at the posterior inferior aspect of the calcaneus. This is best seen on series 3 image 26 and series 5 image 15. There is underlying abnormal bone marrow edema in the calcaneus worrisome for osteomyelitis. There is a chronic appearing fracture deformity of the posterior calcaneus. There is a large bone fragment which is attached to the Achilles tendon and displaced superiorly. This is best seen on sagittal image 14 and 15. There is marked bone marrow edema throughout the calcaneus. Scattered degenerative changes are seen about the remaining visualized osseous structures. There is diffuse muscle atrophy. There is extensive soft tissue edema. Impression: Findings worrisome for osteomyelitis in the posterior inferior calcaneus with overlying skin ulceration and abnormal soft tissue edema. Chronic appearing fracture deformity of the posterior calcaneus. There is a large bone fragment which is attached to the Achilles tendon and displaced superiorly. There is marked bone marrow edema throughout the calcaneus. Signed by: Dr. Donald Loepz M.D. on 12/07/2018 1:39 PM
[2018-12-07] MEDS: ONDANSETRON HCL INJ 2MG/ML 2ML 2 MG/ML VIAL IV PRN (13:50)
[2018-12-07] MEDS: MORPHINE SULFATE INJ 4 MG/ML INJ 1ML IV PRN ×2 (13:50→18:30)
--- NOTE | 2018-12-07 14:00 | NUR ---
Wound care at the bedside, completing dressing change to Rt heel & great toe.
--- NOTE | 2018-12-07 14:29 | NUR ---
Order clarification with Dr. Charley Harmon regarding NPO p MN status, states the plan is for peripheral angiogram tomorrow.
--- NOTE | 2018-12-07 14:41 | NUR ---
WOUND CARE CONSULTATION - INITIAL EVALUATION Patient admitted to ER from Home for worsening right heel wound. Patient previously being followed @ [facility] by Dr. Nelson. Pt was told to admit for further evaluation. BLE Dopplers, MRI, IV ABX. Patient when getting out of the house states she was unable to get down stairs and had to be dragged down with a sheet under her to get her down the second story home. Upon unsuccessful attempt they called the fire department to help her get down the stairs. As a result patient presents with shear friction, pressure injuries to bilateral upper posterior thighs and mid gluteal cleft. DX: Cellulitis of Right Foot with DFU to Hallux and Possible OM of Right Heel. HX: HTN, DM, Hyperlipidemia, Lymphedema, Venous Insufficiency, Heart Murmur, - Dr Nelson- for continued care of foot wounds - Dr Brannon - vascular workup - Dr. Rogers - Infectious Diseases. 12/06/18- Culture of Right Heel - Results Pending 12/07/18- MRI of Right Foot - OM+ Posterior Calcaneous, Large Bone Fragment attached to achilles tendong and displaced superiorly. LABS: WBC 16.36 HGB9.8 HCT29.9 NEUT%80.8 [id number] IMPRESSION: 1. Right Heel - DFU Grade 3 ( 9x9x4 cm) - Boggy/ Loose Necrotic Cap with exposed bone underneath. Periwound Calloused/ Thick. 2. Right Hallux - DFU Grade 1 -partial thickness- 3. Left Lateral Foot - Old/ Healing Stable DTI- Thickened Calloused & Hyperpigmented. (6x1 cm) 4. Mid Gluteal Cleft - Stage II -P.U. POA - Shear Friction -(4x0.1x0.2 cm) 5. Left Gluteal -Stage II with DTI/ Bruising -P.U. POA - Shear Friction - (97j26l3.1cm) 6. Right Gluteal -Bullae Intact - Stage II -P.U. POA - Shear Friction -(5x4cm) RECOMMENDATION: 1. Right Heel - Continue Betadine Moistened Gauze Dressings Until Evaluated By Dr. Nelson. 2. Right Hallux -Continue Betadine Moistened Gauze Dressings Until Evaluated By Dr. Nelson. 4. Mid Gluteal Cleft - -Wash Bilateral Groin and Mid Gluteal Cleft with Mild Soap and Water and pat dry thoroughly then.. -Apply Nystatin Cream/ Barrier Cream with Antifungal Component BID and PRN Soiling. 5. Left Gluteal -Xeroform Single Layer and Cover with Allevyn Foam Sacrum Daily. 6. Right Gluteal -Xeroform Single Layer and Cover with Allevyn Foam Sacrum Daily. 7. Alternating Pressure Air Mattress 8. Bilateral Heel Protectors While In Bed /Offload Heels With Pillows. 9. NWB Right Foot 10. Turn and Reposition q2H. 11. Shear Friction Precautions. Thank you for consulting with wound care. Addendum: 12/07/18 at 1506 by Fabricio Warner RN Amended: Links added.
--- NOTE | 2018-12-07 14:46 | History and Physical ---
CHIEF COMPLAINT: Patient is here for right lower extremity diabetic ulcer. HISTORY OF PRESENTING ILLNESS: This 68-year-old female with a history of diabetes, history of hypertension, morbid obesity was in usual state of health until she started to have wounds on her right heel as well as her toe. She has a history of chronic peripheral arterial disease and also continues to have pain in the lower extremity. Patient is suspected for PAD and also nonhealing ulcers. Came in, was found to have cellulitis of the lower extremity, admitted for the same. PAST MEDICAL HISTORY: History of hypertension, history of hyperlipidemia, history of diabetes mellitus, history of depression. MEDICATIONS SHE TAKES AT HOME 1. Amitriptyline 150 mg. 2. Benazepril 10 mg. 3. Insulin 70/30, 40 units in the p.m. and 16 units at morning. 4. Simvastatin 40 mg at nighttime. 5. Verapamil 120 mg ER once a day. SOCIAL HISTORY: Denies any ETOH. No alcohol and no drug abuse. FAMILY HISTORY: Positive for diabetes mellitus and hypertension. REVIEW OF SYSTEMS: Negative for chest pain. No shortness of breath. No nausea, vomiting, diarrhea. Positive for some fever. No constipation. No rectal bleeding. No hematochezia, no hematemesis. PHYSICAL EXAMINATION VITAL SIGNS: This patient's temperature is 99.4. Pulse of 84. Respiration of 23. Blood pressure is 122/63. Pulse oximetry 100%. HEENT: Normocephalic, atraumatic. Pupils are reactive to light and accommodation. CARDIOVASCULAR: S1 and S2 distant. ABDOMEN: Nontender, nondistended. EXTREMITIES: Significant edema in bilateral lower extremity with chronic venous stasis changes. Nonhealing ulcers on the right heel. No ulceration of the left foot. Patient also is covered up with a bandage. LABORATORY VALUES: Initial white count is 16.36, hemoglobin of 9.8, hematocrit of 29.9. Neutrophil count of 80.8. CHEMISTRY: Sodium of 134, potassium of 3.4, creatinine is 1.25, glucose 311. Total bilirubin of 0.5. AST and ALT are within normal limits. IMAGING: Patient also had a foot MRI done today, which shows osteomyelitis of the posterior inferior calcaneus with overlying skin ulceration and chronic-appearing fracture deformity of the posterior calcaneus. MEDICATIONS CURRENTLY STARTED: Vancomycin and ertapenem. ALLERGIES: PATIENT HAS NO QUOTED ALLERGIES. ASSESSMENT 1. Cellulitis of the lower extremities. 2. Diabetic foot ulcer. 3. Uncontrolled diabetes mellitus. 4. Hypertension. 5. Hyperlipidemia. 6. Peripheral arterial disease. 7. Osteomyelitis and cellulitis of the left lower extremity. PLAN: Patient's consult has been done with Dr. Bean and also Dr. Butch Harmon. Patient has been planned for peripheral angiography with intervention, is scheduled for tomorrow. Continue with antidiabetic agents, hyperlipidemic agents, and also hypertensives. Further recommendation on clinical course. Will continue the patient on ertapenem and vancomycin. Will continue to monitor the patient along with the consultants. Job#: [id number] MAXIMILIANO
[2018-12-07 17:55] VITALS: BP 120/58
--- NOTE | 2018-12-07 19:15 | NUR ---
Bedside rounds completed with morning nurse. Pt alert to name. Lying 45 degrees in bed. Denies pain at this time. No distress noted. Call montes within reach. Will continue to monitor.
[2018-12-07 20:00] VITALS: BP 153/66
[2018-12-07 20:30] VITALS: BP 153/66
[2018-12-07] MEDS: VANCOMYCIN HCL 1.5 GM in SODIUM CHLORIDE 0.9% 250ML 300 ML IV SCH (21:00)
[2018-12-07] MEDS: NYSTATIN 100,000 UNITS/GM CRM 30GM TUBE TOP SCH (21:00)
[2018-12-07] MEDS: ERTAPENEM 1GM/NS 100ML 100 ML IV SCH (23:00)
--- NOTE | 2018-12-07 23:49 | Consultation ---
DATE OF CONSULTATION: December 07, 2018 CONSULTED FOR: Right foot ulcer with osteomyelitis. HISTORY: This is a 68-year-old female who presented to the ER after being recommended to go to the ER from Dr. Nelson office for management and treatment for right calcaneal osteomyelitis. On admission, she denied any nausea, fever, chills, vomiting, or night sweats. She has high suspicion for PAD for nonhealing ulcerations. PAST MEDICAL HISTORY: Significant for hypertension, hyperlipidemia, diabetes mellitus, peripheral neuropathy, peripheral vascular disease, and history of depression. MEDICATIONS: See MAR. ALLERGIES: NO KNOWN DRUG ALLERGIES. SOCIAL HISTORY: Denies any tobacco abuse, illicit drug, or alcohol abuse. FAMILY HISTORY: Noncontributory. REVIEW OF SYSTEMS: Patient is negative for chest pain, shortness of breath, or any other constitutional symptoms. Vitals were reviewed. Labs were reviewed. PHYSICAL EXAMINATION: GENERAL: Patient was seen lying in bed, in no acute distress. HEAD: Normocephalic. CHEST: Denies any chest pain. LUNGS: Denies any shortness of breath. ABDOMEN: Soft, nontender. LOWER EXTREMITY EVALUATION: Nonpalpable pulses to the dorsalis pedis, posterior tibial pulse to the right lower extremity. There is a full-thickness ulceration noted to the plantar aspect of the right heel with positive probe to bone. Significant malodor, erythema and edema are noted. LABORATORY VALUES: Reviewed. RADIOGRAPHS: The MRI was reviewed which is consistent with osteomyelitis of the right infracalcaneus. ASSESSMENT: 1. Osteomyelitis, right calcaneus. 2. Cellulitis, right lower extremity. 3. Limb-threatening diabetic foot infection. 4. Uncontrolled diabetes mellitus. 5. Peripheral arterial disease. PLAN: From podiatry standpoint, begin wet-to-dry dressing for the right lower extremity daily per nursing. At this point, patient has been scheduled for angiogram with Dr. Harmon for tomorrow. We will await results if circulation is established. I have discussed in detail with the patient that she is at high risk of a below-knee amputation. Podiatry will continue to follow at this point with conservative care. Thank you again for including us in the care of this patient. Job#: [id number]
[2018-12-08] VITALS (7 sets, daily range): BP systolic 109–134; BP diastolic 59–66
--- NOTE | 2018-12-08 05:30 | NUR ---
Pt refused to sign Informed Consent for Peripheral Angiogram procedure. Stated she is waiting for her son to talk to the doctor about another test regarding her heart murmur. Informed pt no other procedures were scheduled at this time. Pt has some forgetfulness. Call montes within reach.
--- NOTE | 2018-12-08 07:06 | NUR ---
After speaking with Dr. Nunez Pt signed Informed Consent for Peripheral Angiogram procedure.
--- NOTE | 2018-12-08 07:29 | Progress Note ---
DATE: Patient is here for osteomyelitis of the right foot. The patient is currently pain free. Worried about her angiogram today. No chest pains. No shortness of breath. No nausea, vomiting, diarrhea, and no constipation. No rectal bleeding. No hematochezia. OBJECTIVE VITAL SIGNS: Temperature is 98.4, pulse of 92, respirations of 20, blood pressure is 124/66. HEENT: Normocephalic and atraumatic. CV: S1 and S2 normal. Positive for ejection systolic murmur. ABDOMEN: Nontender and nondistended. EXTREMITIES: No clubbing. Positive for edema bilaterally. The patient's right foot is in a bandage. Has a necrotic ulcer in it. IMAGING STUDIES: Did show chronic osteomyelitis in the calcaneous. The patient also has peripheral arterial disease. ASSESSMENT 1. Cellulitis and osteomyelitis of the right lower extremity. 2. Diabetes mellitus. 3. Hypertension. 4. Hyperlipidemia. Will go ahead and get the patient's lipid panel. Continue on and vancomycin. Will continue monitoring the patient along with the consultants. Consult Dr. Bean for it. Also, the patient is going to have an angiogram today too to revisit the PAD. Further recommendations per clinical course. Will continue monitoring the patient along with the consultants. Job#: [id number] GATO
[2018-12-08] MEDS: INSULIN REGULAR, HUMAN 100 UNIT/1 ML 3ML VIAL SQ SCH ×4 (07:30→20:30)
[2018-12-08 08:22] LABS: CHOL/HDL RATIO 3.9 (3.0-3.6)
[2018-12-08] MEDS: INSULIN ASPART 70/30 100 UNITS/ML VIAL SC SCH ×2 (09:00→20:30)
[2018-12-08] MEDS: AMITRIPTYLINE HCL 25 MG TAB PO SCH ×3 (09:08→21:00)
[2018-12-08] MEDS: BENAZEPRIL HCL 10 MG TAB PO SCH (09:08)
[2018-12-08] MEDS: NYSTATIN 100,000 UNITS/GM CRM 30GM TUBE TOP SCH ×2 (11:10→16:45)
[2018-12-08] MEDS ORDERED: MIDAZOLAM HCL 2 MG/2 ML VIAL ONE ×2 (11:17→12:01)
[2018-12-08] MEDS ORDERED: FENTANYL CITRATE/PF 100MCG/2 ML INJ ONE (11:17)
[2018-12-08] MEDS ORDERED: SODIUM CHLORIDE 0.9% 1000ML 1,000 ML ONE (11:18)
[2018-12-08] MEDS ORDERED: IOPAMIDOL 300MG/ML 100 ML INFUS..BTL IV ONE ×2 (11:18→12:09)
[2018-12-08] MEDS ORDERED: LIDOCAINE HCL 1% LOCAL INJ 20 ML VIAL ONE (11:18)
[2018-12-08] MEDS ORDERED: HEPARIN SOD/SOD CHLORIDE 2,000 ML ONE (11:19)
--- NOTE | 2018-12-08 12:04 | NUR ---
patient down to flue dust laborer for angiogram now.
--- NOTE | 2018-12-08 13:45 | NUR ---
Nutrition Intervention Note RD Recommendation(s) for Physician: -Continue ADA diet as ordered -Rec Garry BID to promote protein-calorie intake -Rec MVi w/minerals and vitamin C to support wound healing -Rec to draw HbA1c Plan of Care: RD following, monitoring for tolerance and adequacy, ONS Nutrition reason for involvement: Dx- multiple wounds and PU RD Assessment 12/08 Chart reviewed. 68yo F, who is admitted for RLE diabetic ulcer. Visited pt in the room. Pt reported good appetite and eager to eat. 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 Pt denied chewing/swallowing problems and nausea/vomiting. LBM 12/07. Pt has been dx with DM for many years and is not interested in diet education. Will continue to monitor and follow. Principal Problems/Diagnoses: Cellulitis and osteomyelitis of the right lower extremity. PMH: DM, HLD, HTN, depression, morbid obesity, PAD GI: Abd soft, non-tender, large, round; LBM 12/07 Skin: Wound care notes - 1. Right Heel - DFU Grade 3 2. Right Hallux - DFU Grade 1 -partial thickness- 3. Left Lateral Foot - Old/ Healing Stable DTI 4. Mid Gluteal Cleft - Stage II -P.U. 5. Left Gluteal -Stage II with DTI/ Bruising -P.U. 6. Right Gluteal -Bullae Intact - Stage II -P.U. Labs: No lab since 12/06 Meds: insulin, abx, zofran Ht: 69in Wt: 297lb BMI: 43.9kg/m2 IBW: 145lb Malnutrition Evaluation (12/08/2018) The patient does not meet criteria for a specified degree of malnutrition at this time. Will re-evaluate at follow-up as appropriate. Nutrition Prescription (Diet Order): ADA diet Estimated Nutritional Needs: Calories: 1650-1782kcal(25-27kcal/kg/d) Weight used : IBW Protein : 99 -165g(1.5-2.5g/kg/d) Weight used: IBW Diet Adequacy: N/A Diet Education Needs Assessment: Diet education indicated, but patient declined. Nutrition Care Level: low Nutrition Diagnosis: Increased protein needs related to altered skin integrity as evidenced by multiple wounds/ pressure ulcer noted. Goal: Patient will meet 75-100% of estimated needs by follow up Progress: N/A Interventions: Carbohydrate-modified diet, Commercial food, Multivitamin/mineral supplement therapy Monitoring/Evaluation: Total energy intake, Total protein intake, Modified diet, supplement, Weight change Signed: Marilou Levy MS, RD, LD
--- NOTE | 2018-12-08 13:49 | Progress Note ---
DATE: December 08, 2018 The patient is scheduled for lower extremity angiogram and possible angioplasty today. Clinically unchanged. OBJECTIVE VITALS: Temperature 98, pulse 82, respiratory rate 20, blood pressure 109/59. HEENT: Normocephalic and atraumatic. The extraocular movements are intact. NECK: Supple. LUNGS: Fair air entry bilaterally, clear to auscultation. HEART: Heart sounds S1 and S2, no murmur or gallop. ABDOMEN: Soft, nontender. Normoactive bowel sounds. EXTREMITIES: Right heel necrotic ulcer with right lower extremity lymphedema and cellulitis. LABS: WBC count is 16, hemoglobin 9.8, platelets 319. BUN 9, creatinine 1.25. MRI of the right lower extremity shows osteomyelitis in the right calcaneus. ASSESSMENT 1. Diabetic foot infection. 2. Diabetic foot ulcer. 3. Osteomyelitis, right calcaneus. 4. Probable peripheral vascular disease, being evaluated. 5. Uncontrolled diabetes mellitus. 6. Cellulitis, right lower extremity. RECOMMENDATIONS 1. Antibiotic treatment with vancomycin and ertapenem to continue. 2. Follow up cultures. 3. Will follow up results of vascular studies. 4. Podiatry is seeing the patient for any debridement. 5. Will continue to follow. Job#: [id number] cc:GHISLAINE REN MD
--- NOTE | 2018-12-08 16:16 | Progress Note ---
DATE: December 08, 2018 CARDIOLOGY PROGRESS NOTE SUBJECTIVE: Had peripheral angiography performed today by me, showed no significant PAD. OBJECTIVE VITAL SIGNS: Temperature 98.0, pulse 82, respiratory rate 20, blood pressure 124/66, satting 95% on room air. GENERAL: Obese female, no acute distress. CARDIOVASCULAR: Difficult exam due to body habitus. Regular rate and rhythm. No murmurs, rubs or gallops. LUNGS: Clear to auscultation, decreased breath sounds at the bases. ABDOMEN: Obese, soft, nontender, nondistended. NEURO AND PSYCH: Alert and oriented to person, place, time and normal affect. INPATIENT MEDICATIONS: Reviewed. LABORATORY DATA: Reviewed. IMAGING DATA: Reviewed. ASSESSMENTS 1. Nonhealing foot ulcer of the right lower extremity. 2. Bilateral lower extremity lymphedema. 3. Hypertension. 4. Hyperlipidemia. 5. Diabetes. PLAN: Peripheral angiography did not show any significant peripheral arterial disease of right or left lower extremity despite abnormal arterial Doppler. Continue wound care and treatment for lymphedema. Debridement and amputation services per podiatry. Antibiotics per primary team. Thank you for this consult. Will continue to follow. Job#: [id number] BENITA
[2018-12-08] MEDS: ERTAPENEM 1GM/NS 100ML 100 ML IV SCH (16:35)
[2018-12-08] MEDS: MORPHINE SULFATE INJ 4 MG/ML INJ 1ML IV PRN (16:56)
[2018-12-08] MEDS: ONDANSETRON HCL INJ 2MG/ML 2ML 2 MG/ML VIAL IV PRN (16:56)
[2018-12-08] MEDS: VANCOMYCIN HCL 1.5 GM in SODIUM CHLORIDE 0.9% 250ML 300 ML IV SCH (17:27)
--- NOTE | 2018-12-08 19:47 | NUR ---
PT IS RESTING IN BED. NO RESPIRATORY DISTRESS NOTED. BED IN LOWEST POSITION, LOCKED, BED ALARM ON, AND CALL LIGHT WITHIN REACH. WILL CONTINUE TO MONITOR.
[2018-12-09] VITALS: BP 123/59
[2018-12-09 04:00] VITALS: BP 126/59
--- NOTE | 2018-12-09 07:08 | NUR ---
pt awake resp even and unlabored this time no distress noted, pt easily aroused at this time, to name no c/o pain when asked, pt has lab at bedside to draw labs. call light in reach.
[2018-12-09 07:20] LABS: BASOPHILS % 0.2 % (0.0-1.0); EOSINOPHILS # (AUTO) 0.6 (0.0-0.4); EOSINOPHILS % 5.3 % (0.0-6.0); HEMATOCRIT 25.5 % (34.2-44.1); HEMOGLOBIN 8.9 g/dL (12.0-16.0); LYMPHOCYTES # (AUTO) 1.6 (1.0-3.2); LYMPHOCYTES % 15.7 % (18.0-39.1); MEAN CORPUSCULAR HEMOGLOBIN 27.1 pg (28-32); MEAN CORPUSCULAR HGB CONC 34.9 g/dL (31-35); MEAN CORPUSCULAR VOLUME 77.5 fL (81-99); MONOCYTES # (AUTO) 0.9 (0.2-0.8); MONOCYTES % 8.4 % (4.4-11.3); NEUTROPHILS # (AUTO) 7.3 (2.1-6.9); NEUTROPHILS % 69.5 % (38.7-80.0); PLATELET COUNT 302 x10e3/uL (140-360); RED BLOOD COUNT 3.29 x10e6/uL (3.6-5.1); RED CELL DISTRIBUTION WIDTH 16.3 % (11.7-14.4)
[2018-12-09] MEDS: INSULIN REGULAR, HUMAN 100 UNIT/1 ML 3ML VIAL SQ SCH ×4 (07:30→20:53)
[2018-12-09 07:37] LABS: ANION GAP 12.7 mmol/L (8-16); BLOOD UREA NITROGEN 10 mg/dL (7-26); BUN/CREATININE RATIO 10 (6-25); CALCIUM 7.6 mg/dL (8.4-10.2); CARBON DIOXIDE 26 mmol/L (22-29); CHLORIDE 107 mmol/L (98-107); CREATININE, SERUM 0.97 mg/dL (0.57-1.11); EST GLOMERULAR FILTRATION RATE > 60 ML/MIN (60-); GLUCOSE 73 mg/dL (74-118); POTASSIUM 3.7 mmol/L (3.5-5.1); SODIUM 142 mmol/L (136-145)
[2018-12-09 08:00] VITALS: BP 131/59
[2018-12-09 08:30] LABS: IRON 22 ug/dL (50-170); TRANSFERRIN < 70 mg/dL (180-382)
[2018-12-09] MEDS: NYSTATIN 100,000 UNITS/GM CRM 30GM TUBE TOP SCH ×2 (09:00→17:20)
[2018-12-09] MEDS: BENAZEPRIL HCL 10 MG TAB PO SCH (09:00)
--- NOTE | 2018-12-09 09:09 | Progress Note ---
DATE: SUBJECTIVE: The patient is currently here for right lower extremity osteomyelitis. The patient underwent a cardiac cath yesterday and no circulatory problems were determined. At this point in time, the patient is pain free and continues to be doing well. No complaints at this time. MEDICATIONS: She takes Insulin 40 units at nighttime of NovoLog 70/30. She is on vancomycin and ertapenem for osteomyelitis, morphine sulfate for pain as needed, and also on sliding scale. OBJECTIVE VITAL SIGNS: Temperature is 97.1, pulse of 78, respirations of 20, blood pressure is 131/59. HEENT: Normocephalic, atraumatic. Pupils are reactive to light and accommodation. CVS: S1 and S2 normal. Regular rate and rhythm. ABDOMEN: Nontender and nondistended. EXTREMITIES: No clubbing. Positive for edema and right side with bandage with slight seepage of discharge on the bandage. LABORATORY VALUES: Today's white count is 10.41, hemoglobin of 8.9, hematocrit of 25.5. Chemistry: Sodium of 132, potassium of 3.7, BUN of 10, and creatinine of 0.97. Glucoses have been trending down from 214 to 83. Calcium is 7.6. The patient's HDL was 27 and LDL of 68. ASSESSMENT 1. Nonhealing foot ulcer with osteomyelitis. Continue with ertapenem and vancomycin. 2. Bilateral lower extremity edema status post angiogram with no intervention and no significant peripheral arterial disease. 3. Hypertension. Continue with antihypertensive medications. 4. Hyperlipidemia. We will start the patient on statins. 5. For diabetes, continue 70/30 insulin. The patient is to be followed with Podiatry and also with Cardiology. PLAN: Further recommendation per clinical course. Podiatry service to determine the progression of the other wound. We will continue monitoring the patient along with consultants and labs will be followed up on a regular basis. Additional diagnosis also is anemia. We will check her iron panels and continue to monitor his H and H on a regular basis. Job#: [id number] JARON
[2018-12-09] MEDS: INSULIN ASPART 70/30 100 UNITS/ML VIAL SC SCH ×2 (09:40→20:50)
[2018-12-09 11:49] VITALS: BP 142/63
[2018-12-09] MEDS: ACETAMINOPHEN 325 MG TAB PO PRN (13:29)
[2018-12-09 16:12] VITALS: BP 121/57
[2018-12-09] MEDS: ERTAPENEM 1GM/NS 100ML 100 ML IV SCH (17:20)
[2018-12-09] MEDS: VANCOMYCIN HCL 1.5 GM in SODIUM CHLORIDE 0.9% 250ML 300 ML IV SCH (18:19)
[2018-12-09] MEDS: MORPHINE SULFATE INJ 4 MG/ML INJ 1ML IV PRN (19:07)
[2018-12-09 19:15] VITALS: BP 110/55
--- NOTE | 2018-12-09 19:30 | NUR ---
REPORT GIVEN TO ONCOMING NURSE.
[2018-12-09] MEDS: AMITRIPTYLINE HCL 25 MG TAB PO SCH ×2 (20:51→21:00)
[2018-12-10] VITALS (9 sets, daily range): BP systolic 110–148; BP diastolic 53–68
[2018-12-10 05:13] LABS: BASOPHILS % 0.2 % (0.0-1.0); EOSINOPHILS # (AUTO) 0.4 (0.0-0.4); EOSINOPHILS % 3.9 % (0.0-6.0); HEMATOCRIT 25.3 % (34.2-44.1); LYMPHOCYTES % 9.3 % (18.0-39.1); MEAN CORPUSCULAR HEMOGLOBIN 27.4 pg (28-32); MEAN CORPUSCULAR HGB CONC 35.6 g/dL (31-35); MEAN CORPUSCULAR VOLUME 76.9 fL (81-99); MONOCYTES % 9.3 % (4.4-11.3); NEUTROPHILS # (AUTO) 8.4 (2.1-6.9); NEUTROPHILS % 76.2 % (38.7-80.0); PLATELET COUNT 284 x10e3/uL (140-360); RED BLOOD COUNT 3.29 x10e6/uL (3.6-5.1); RED CELL DISTRIBUTION WIDTH 16.4 % (11.7-14.4)
[2018-12-10 05:30] LABS: ANION GAP 12.7 mmol/L (8-16); BLOOD UREA NITROGEN 10 mg/dL (7-26); BUN/CREATININE RATIO 10 (6-25); CALCIUM 7.8 mg/dL (8.4-10.2); CARBON DIOXIDE 26 mmol/L (22-29); CHLORIDE 107 mmol/L (98-107); CREATININE, SERUM 0.98 mg/dL (0.57-1.11); EST GLOMERULAR FILTRATION RATE > 60 ML/MIN (60-); GLUCOSE 73 mg/dL (74-118); POTASSIUM 3.7 mmol/L (3.5-5.1); SODIUM 142 mmol/L (136-145)
--- NOTE | 2018-12-10 06:55 | NUR ---
rounded with peat shredder tender nurse, patient aware of change. Patient in no distress and call montes within reach.
[2018-12-10] MEDS: INSULIN REGULAR, HUMAN 100 UNIT/1 ML 3ML VIAL SQ SCH ×4 (07:30→20:31)
[2018-12-10] MEDS: MORPHINE SULFATE INJ 4 MG/ML INJ 1ML IV PRN (08:45)
[2018-12-10] MEDS: BENAZEPRIL HCL 10 MG TAB PO SCH (08:45)
[2018-12-10] MEDS: INSULIN ASPART 70/30 100 UNITS/ML VIAL SC SCH ×2 (08:47→20:31)
[2018-12-10] MEDS: NYSTATIN 100,000 UNITS/GM CRM 30GM TUBE TOP SCH ×2 (10:00→17:00)
[2018-12-10] MEDS: ACETAMINOPHEN 325 MG TAB PO PRN (16:20)
[2018-12-10] MEDS: ERTAPENEM 1GM/NS 100ML 100 ML IV SCH (16:35)
--- NOTE | 2018-12-10 18:45 | NUR ---
report given to shift production supervisor nurse, patient aware of nurse change. Call montes within reach and bed in lowest position.
--- NOTE | 2018-12-10 19:00 | NUR ---
patient recieved awake, alert, lying quietly in bed. vss. pain minimal to right foot per patient. dressing to right foot c,d,i. pm assessment complete. family remains at the bedside. patient/family instructed to call for assistance when needed.
[2018-12-10] MEDS: VANCOMYCIN HCL 1.5 GM in SODIUM CHLORIDE 0.9% 250ML 300 ML IV SCH (19:30)
--- NOTE | 2018-12-10 20:31 | NUR ---
patient refused sliding scale insulin. patient states, " I don't take that kind of insulin at home and i really don't want it. "
[2018-12-10] MEDS: AMITRIPTYLINE HCL 25 MG TAB PO SCH (20:44)
--- NOTE | 2018-12-10 21:00 | NUR ---
patient oob to bathroom with walker with assistance. moderate sized bm noted at this time. patient back to bed with assistance. dressing to right foot c,d,i. mid, right and left gluteal stage 2 wounds noted. skin care provided.
[2018-12-11 00:20] VITALS: BP 131/60
[2018-12-11] MEDS: MORPHINE SULFATE INJ 4 MG/ML INJ 1ML IV PRN ×2 (00:20→15:45)
--- NOTE | 2018-12-11 00:20 | NUR ---
patient medicated with morphine 2mg ivp for c/o right foot pain 05/23.
[2018-12-11] MEDS: ONDANSETRON HCL INJ 2MG/ML 2ML 2 MG/ML VIAL IV PRN ×2 (00:25→15:56)
--- NOTE | 2018-12-11 01:00 | Progress Note ---
DATE: SUBJECTIVE: The patient is here for cellulitis and osteomyelitis of right foot. The patient is currently asymptomatic. Pain is controlled. OBJECTIVE VITAL SIGNS: Temperature is 99.4, pulse of 82, respirations of 20, blood pressure is 148/66. HEENT: Normocephalic, atraumatic. Pupils are reactive to light and accommodation. CVS: S1 and S2, regular ABDOMEN: Nontender and nondistended. EXTREMITIES: Right lower extremity is covered and bandaged. Positive for some seepage through. LABORATORY VALUES: White count is 11,000, hemoglobin of 9.0, and hematocrit of 25.3. Chemistry shows sodium of 142, potassium of 3.7, BUN of 10, and creatinine of 0.9. Glucose is 282 and iron studies shows an iron of 22, TIBC not done, and transferrin is less than 70. ASSESSMENT 1. Nonhealing foot ulcer with osteomyelitis. Continue with ertapenem and vancomycin. ID on consult. 2. Bilateral lower extremity edema status post angiogram with no intervention and no PAD. 3. Hypertension. Continue with antihypertensive. 4. Hyperlipidemia. Continue with cholesterol medications. 5. Diabetes. The patient is on insulin. 6. For the osteomyelitis, further recommendation as per Podiatry consult. We will continue monitoring the patient. DISPOSITION: Keep inpatient and we will continue monitoring the patient and also vancomycin trough will be done. Job#: [id number] JARON
[2018-12-11 04:25] VITALS: BP 107/51
--- NOTE | 2018-12-11 07:26 | Progress Note ---
DATE: Patient came in with diabetic foot ulcer and osteomyelitis. Patient is currently asymptomatic. No complaints. Pain is controlled. OBJECTIVE VITAL SIGNS: Temperature is 99, respirations of 16, blood pressure is 107/51, pulse oximetry of 93%. HEENT: Normocephalic and atraumatic. Pupils are reactive to light and accommodation. CV: S1 and S2 normal. Regular rate and rhythm. ABDOMEN: Nontender and nondistended. EXTREMITIES: No clubbing. The right foot is in a bandage. LABORATORY VALUES: White count was 11,000 yesterday, hemoglobin of 9, hematocrit of 25.3. Chemistry: Sodium 142, potassium is 3.7, BUN and creatinine are 0.98 and 10 BUN. Glucoses have been running between 70s to 200s. IMAGING STUDIES: Foot MRI done shows chronic appearing osteomyelitis in the calcaneous. ASSESSMENT 1. Nonhealing foot ulcer with osteomyelitis: Continue with ertapenem and vancomycin. Infectious disease consult. 2. Bilateral lower extremity swelling: Peripheral arterial disease has been ruled out. 3. Hypertension. 4. Hyperlipidemia. 5. Diabetes mellitus. PLAN 1. Possibly put a PICC line in depending on ID's course. 2. Podiatry services to continue monitoring her foot and possible debridement or intervention depending on clinical course. Further recommendations per clinical course. Will continue monitoring the patient. Job#: [id number] IN
[2018-12-11] MEDS: INSULIN REGULAR, HUMAN 100 UNIT/1 ML 3ML VIAL SQ SCH ×4 (07:30→21:00)
[2018-12-11 08:00] VITALS: BP 127/59
[2018-12-11] MEDS: INSULIN ASPART 70/30 100 UNITS/ML VIAL SC SCH ×2 (09:00→21:00)
[2018-12-11] MEDS: BENAZEPRIL HCL 10 MG TAB PO SCH (09:24)
[2018-12-11] MEDS: NYSTATIN 100,000 UNITS/GM CRM 30GM TUBE TOP SCH ×2 (09:25→16:54)
[2018-12-11 12:00] VITALS: BP 168/99
--- NOTE | 2018-12-11 15:55 | Progress Note ---
DATE: December 11, 2018 CARDIOLOGY PROGRESS NOTE SUBJECTIVE: The patient denies chest pain or shortness of breath. OBJECTIVE VITALS: Temperature 99.7 degrees, pulse 87, respiratory rate 16, blood pressure 127/59, oxygen saturation 92%. GENERAL: Obese woman in no acute distress. Awake and alert. LUNGS: Clear to auscultation bilaterally. No wheezes or crackles. CARDIOVASCULAR: Normal rate. Regular rhythm. Systolic murmur. ABDOMEN: Soft and nontender. EXTREMITIES: Edematous. CARDIAC MEDICATIONS: Benazepril 20 mg p.o. daily. LABS: None today. IMPRESSION 1. Nonhealing foot ulcer with osteomyelitis. 2. Bilateral lower extremity lymphedema. 3. Hypertension. 4. Hyperlipidemia. 5. Diabetes mellitus. RECOMMENDATIONS: Peripheral angiogram did not show any evidence of peripheral arterial disease. Continue wound care per podiatry. Antibiotics per primary service. Treatment of lymphedema. Patient will need outpatient cardiac evaluation to further evaluate her murmur. Thank you for this consult. We will continue to follow. Job#: [id number] [place]
[2018-12-11 16:00] VITALS: BP 138/56
[2018-12-11] MEDS: ERTAPENEM 1GM/NS 100ML 100 ML IV SCH (16:57)
[2018-12-11] MEDS ORDERED: SODIUM CHLORIDE 0.9% 250ML 250 ML ONE (16:57)
--- NOTE | 2018-12-11 17:08 | NUR ---
ORDERS FOR LTAC EVAL AND TRANSFER WHEN ACCEPTED
[2018-12-11] MEDS: VANCOMYCIN HCL 1.5 GM in SODIUM CHLORIDE 0.9% 250ML 300 ML IV SCH (18:47)
[2018-12-11 20:00] VITALS: BP 133/60
--- NOTE | 2018-12-11 20:00 | NUR ---
INITIAL ASSESSMENT COMPLETE, CALL LIGHT IN REACH, PT IN BED, DAUGHTER AT BEDSIDE, LOWER EXTREMITIES WITH NON PITTING EDEMA, UNABLE TO MOVE AROUND IN BED EASILY, PICC LINE TO LEFT UPPER ARM, DRESSING TO RIGHT FOOT INTACT, DRESSING TO LEFT BUTTOCKS SKIN TEAR INTACT, LTAC EVALUATION IN FOR TOMORROW, PT INCONTINENT OF URINE AT TIMES, PT BED CHANGED, NO DISTRESS NOTED
[2018-12-11] MEDS: AMITRIPTYLINE HCL 25 MG TAB PO SCH (21:00)
[2018-12-12] VITALS (7 sets, daily range): BP systolic 121–145; BP diastolic 53–68
--- NOTE | 2018-12-12 | NUR ---
PT AWAKE FOR VS, VS STABLE, CALL LIGHT IN REACH, TOLD TO CALL FOR NEEDS
--- NOTE | 2018-12-12 06:35 | NUR ---
PT AWAKE FOR VS, VS STABLE, CALL LIGHT IN REACH, NO DISTRESS NOTED
[2018-12-12] MEDS: INSULIN REGULAR, HUMAN 100 UNIT/1 ML 3ML VIAL SQ SCH ×3 (07:30→16:30)
[2018-12-12] MEDS: BENAZEPRIL HCL 10 MG TAB PO SCH (08:56)
[2018-12-12] MEDS: INSULIN ASPART 70/30 100 UNITS/ML VIAL SC SCH (09:30)
[2018-12-12] MEDS: NYSTATIN 100,000 UNITS/GM CRM 30GM TUBE TOP SCH ×2 (09:56→17:00)
--- NOTE | 2018-12-12 10:47 | Progress Note ---
DATE: December 12, 2018 CARDIOLOGY PROGRESS NOTE SUBJECTIVE: Patient denies chest pain or shortness of breath. OBJECTIVE VITALS: Temperature 97.2 degrees, pulse 76, respiratory rate 18, blood pressure 121/54, oxygen saturation 95% on room air. GENERAL: Awake, alert and in no acute distress. LUNGS: Clear to auscultation bilaterally. No wheezes or crackles. CARDIOVASCULAR: Normal rate. Regular rhythm. Systolic murmur. ABDOMEN: Soft and nontender. EXTREMITIES: Edematous. One plus pitting edema. CARDIAC MEDICATIONS: Benazepril 20 mg p.o. daily. LABS: None today. IMPRESSION 1. Nonhealing foot ulcer with osteomyelitis. 2. Bilateral lower extremity lymphedema. 3. Hypertension. 4. Hyperlipidemia. 5. Diabetes mellitus. RECOMMENDATIONS: Peripheral angiogram did not show evidence of peripheral arterial disease. Continue wound care per podiatry. Antibiotics per primary service. Treat lymphedema. The patient will need followup as an outpatient to evaluate her murmur. Thank you for this consult. We will continue to follow. Job#: [id number] SD
--- NOTE | 2018-12-12 15:37 | NUR ---
Met with pt earlier and she agreed to [facility]. She signed choice letter and mary Jimenezison was notified. Eval in progress. Anticipate transfer to [facility] later today. [place] [id number] [place] [phone] fax: [phone] penny Jimenez [phone]
--- NOTE | 2018-12-12 16:26 | NUR ---
Accepted to [facility]. Notified Katia RN, pt and family. To go to room 319. MOT initiated and given to Katia [facility] [address] [place] [address] Room 319
--- NOTE | 2018-12-12 16:55 | NUR ---
WOUND CARE CONSULTATION -Follow Up - Patient admitted to ER from Home for worsening right heel wound. - BLE Arterial/ Venous Dopplers - no blockages. - Cellulitis of Right Foot with DFU to Hallux and Possible OM of Right Heel. HX: HTN, DM, Hyperlipidemia, Lymphedema, Venous Insufficiency, Heart Murmur, - Dr Nelson- for continued care of foot wounds - Dr. Leni Arora - Dr Brannon - vascular workup - Dr. Rogers - Infectious Diseases. 12/06/18- Culture of Right Heel - Results Pending 12/07/18- MRI of Right Foot - OM+ Posterior Calcaneous, Large Bone Fragment attached to achilles tendong and displaced superiorly. IMPRESSION: 1. Right Heel - DFU Grade 3 ( 9x9x4 cm) - Boggy/ Loose Necrotic Cap with exposed bone underneath. Periwound Calloused/ Thick. 2. Right Hallux - DFU Grade 1 -partial thickness - Expressing milky white exudate. 4. Mid Gluteal Cleft - Stage II -P.U. POA - Shear Friction -Healing 5. Left Gluteal -Stage II with DTI/ Bruising -P.U. POA - Shear Friction - Healing. 6. Right Gluteal -Bullae Intact - Stage II -P.U. POA - Resolved. RECOMMENDATION: Continue Current Treatment Plan DISCHARGE PLANS: - Patient to discharge today to LTC for continued antibiotics and wound care. Addendum: 12/12/18 at 1703 by Fabricio Warner RN Amended: Links added.
[2018-12-12] MEDS: ERTAPENEM 1GM/NS 100ML 100 ML IV SCH (17:05)
--- NOTE | 2018-12-12 19:39 | NUR ---
patient is being picked up by ambulance at this time to be transferred to [facility], patient is awake alert oriented, verbalizes needs, no distress noted. house sup was in the room and clarify transfer process, questions were answered properly. patient is leaving with picc line to left upper arm for continuing care at [facility], its flushed well.
== END 2018-12-12 19:40 | DRG 872 ==
LOC: ER 14:31 → ERHOLD 15:12 → MED/SURG3 12-07 17:17
PROVIDERS: ADMIT Internal Medicine; ATTEND Internal Medicine
PROC: B41D1ZZ Fluoroscopy of Aorta and Bilateral Lower Extremity Arteries using Low Osmolar Contrast (ICD-10-PCS; principal; 2018-12-08)
DX: A41.9 Sepsis, unspecified organism (principal); L03.115 Cellulitis of right lower limb; L97.414 Non-pressure chronic ulcer of right heel and midfoot with necrosis of bone; M86.8X6 Other osteomyelitis, lower leg; E87.1 Hypo-osmolality and hyponatremia; Z68.42 Body mass index [BMI] 45.0-49.9, adult; L97.511 Non-pressure chronic ulcer of other part of right foot limited to breakdown of skin; L89.151 Pressure ulcer of sacral region, stage 1; L89.321 Pressure ulcer of left buttock, stage 1; E11.65 Type 2 diabetes mellitus with hyperglycemia; E11.69 Type 2 diabetes mellitus with other specified complication; Z79.4 Long term (current) use of insulin; I10 Essential (primary) hypertension; E78.5 Hyperlipidemia, unspecified; Z83.3 Family history of diabetes mellitus; Z82.49 Family history of ischemic heart disease and other diseases of the circulatory system; E66.01 Morbid (severe) obesity due to excess calories; E11.621 Type 2 diabetes mellitus with foot ulcer; E11.628 Type 2 diabetes mellitus with other skin complications
CPT/HCPCS: 36415; 80048; 80053; 80061; 80202; 82948; 83540; 84466; 85025; 87040; 87071; 87205; 93926; 93971; 96367; 96372; 99284; J1815; J2001; J2250; J2270; J2405; J3370; J7030; J7050; Q9967

== ENCOUNTER 2018-12-06 14:51 | Outpatient (RCR) | payer MEDICARE ==
[2018-11-15 16:16] LABS: BASOPHILS % 0.2 % (0.0-1.0); EOSINOPHILS # (AUTO) 0.1 (0.0-0.4); HEMATOCRIT 32.5 % (34.2-44.1); HEMOGLOBIN 10.7 g/dL (12.0-16.0); LYMPHOCYTES # (AUTO) 2.6 (1.0-3.2); LYMPHOCYTES % 22.1 % (18.0-39.1); MEAN CORPUSCULAR HEMOGLOBIN 27.4 pg (28-32); MEAN CORPUSCULAR HGB CONC 32.9 g/dL (31-35); MEAN CORPUSCULAR VOLUME 83.3 fL (81-99); MONOCYTES # (AUTO) 1.1 (0.2-0.8); NEUTROPHILS % 67.2 % (38.7-80.0); PLATELET COUNT 301 x10e3/uL (140-360); RED CELL DISTRIBUTION WIDTH 15.3 % (11.7-14.4)
[2018-11-15 16:40] LABS: ALANINE AMINOTRANSFERASE 8 IU/L (0-55); ALBUMIN 2.9 g/dL (3.5-5.0); ALBUMIN/GLOBULIN RATIO 0.7 (0.8-2.0); ALKALINE PHOSPHATASE 51 IU/L (40-150); ANION GAP 12.6 mmol/L (8-16); BLOOD UREA NITROGEN 7 mg/dL (7-26); BUN/CREATININE RATIO 9 (6-25); CALCIUM 9.2 mg/dL (8.4-10.2); CARBON DIOXIDE 27 mmol/L (22-29); CHLORIDE 102 mmol/L (98-107); CREATININE, SERUM 0.79 mg/dL (0.57-1.11); EST GLOMERULAR FILTRATION RATE > 60 ML/MIN (60-); POTASSIUM 3.6 mmol/L (3.5-5.1); SODIUM 138 mmol/L (136-145)
[2018-11-15 17:00] LABS: GLUCOSE 25 mg/dL (74-118)
[2018-11-15 17:31] LABS: ERYTHROCYTE SEDIMENTATION RATE 84 mm/hr (0-20)
[~2018-12-06 14:51] MED LIST changes: +COLLAGENASE OINTMENT 30 GM TUBE ONE; +LIDOCAINE VISC 2% SOLN 15 ML UDC ONE; +LIDOCAINE/PRILOCAINE 2.5-2.5% KIT ONE; +MINERAL OIL/PETROLAT/GLYCERI 6OZ BTL ONE; +SILVER SULFADIAZINE 50GM CREAM ONE
[2018-12-06] MEDS ORDERED: AMITRIPTYLINE150 MG PO (22:45)
[2018-12-06] MEDS ORDERED: METFORMIN HCL500 MG PO (22:45)
== END 2018-12-14 ==
LOC: WCC 14:51
PROVIDERS: ATTEND Podiatrist Foot & Ankle Surgery
DX: E11.621 Type 2 diabetes mellitus with foot ulcer (principal); L97.519 Non-pressure chronic ulcer of other part of right foot with unspecified severity; L97.419 Non-pressure chronic ulcer of right heel and midfoot with unspecified severity; R60.9 Edema, unspecified; I87.2 Venous insufficiency (chronic) (peripheral); I89.0 Lymphedema, not elsewhere classified; I10 Essential (primary) hypertension; B96.89 Other specified bacterial agents as the cause of diseases classified elsewhere
CPT/HCPCS: 11042 ×2; 11045; 29581 ×3; 36415; 75630; 80053; 84134; 85025; 85651; 87071; 87075; 87205; 93923; 97605; 99213 ×2; 99214 ×2; C1725; C1769

== ENCOUNTER 2019-02-09 14:14 | Outpatient (RCR) | payer MEDICARE ==
[~2019-02-09 14:14] MED LIST changes: +AMITRIPTYLINE150 MG PO; +BALSAM PERU/CASTOR OIL 60 GM OINT...G. TP ONE; -LIDOCAINE VISC 2% SOLN 15 ML UDC ONE; -LIDOCAINE/PRILOCAINE 2.5-2.5% KIT ONE; +METFORMIN HCL500 MG PO; -SILVER SULFADIAZINE 50GM CREAM ONE
[2019-02-09] MEDS ORDERED: BALSAM PERU/CASTOR OIL 60 GM OINT...G. TP ONE (18:16)
== END 2019-02-11 ==
LOC: WCC 14:14
PROVIDERS: ATTEND Podiatrist Foot & Ankle Surgery
DX: E11.621 Type 2 diabetes mellitus with foot ulcer (principal); M86.671 Other chronic osteomyelitis, right ankle and foot; L97.529 Non-pressure chronic ulcer of other part of left foot with unspecified severity; L97.414 Non-pressure chronic ulcer of right heel and midfoot with necrosis of bone; L97.419 Non-pressure chronic ulcer of right heel and midfoot with unspecified severity; L97.519 Non-pressure chronic ulcer of other part of right foot with unspecified severity; I87.2 Venous insufficiency (chronic) (peripheral); I89.0 Lymphedema, not elsewhere classified; R60.9 Edema, unspecified; I10 Essential (primary) hypertension; B96.89 Other specified bacterial agents as the cause of diseases classified elsewhere
CPT/HCPCS: 11042; 36415 ×12; 82948 ×14; 87071; 87075; 87186; 87205; 97602 ×3; 99211; 99213; 99214; G0277 ×16

== ENCOUNTER 2019-03-12 10:41 | Outpatient (RCR) | payer MEDICARE ==
[~2019-03-12 10:41] MED LIST changes: +BALSAM PERU/CASTOR OIL 5 GM OINT...G. ONE; -BALSAM PERU/CASTOR OIL 60 GM OINT...G. TP ONE; -COLLAGENASE OINTMENT 30 GM TUBE ONE; +LIDOCAINE VISC 2% SOLN 15 ML UDC ONE; +LIDOCAINE/PRILOCAINE 2.5-2.5% KIT ONE
[2019-03-12] MEDS ORDERED: MINERAL OIL/PETROLAT/GLYCERI 6OZ BTL ONE (18:11)
== END 2019-03-13 ==
LOC: WCC 10:41
PROVIDERS: ATTEND Podiatrist Foot & Ankle Surgery
DX: E11.621 Type 2 diabetes mellitus with foot ulcer (principal); L89.323 Pressure ulcer of left buttock, stage 3; M86.671 Other chronic osteomyelitis, right ankle and foot; L97.529 Non-pressure chronic ulcer of other part of left foot with unspecified severity; L97.414 Non-pressure chronic ulcer of right heel and midfoot with necrosis of bone; L97.519 Non-pressure chronic ulcer of other part of right foot with unspecified severity; I87.2 Venous insufficiency (chronic) (peripheral); I89.0 Lymphedema, not elsewhere classified; I10 Essential (primary) hypertension; A49.01 Methicillin susceptible Staphylococcus aureus infection, unspecified site; B96.89 Other specified bacterial agents as the cause of diseases classified elsewhere; Z74.01 Bed confinement status
CPT/HCPCS: 11042 ×5; 11045; 29445 ×5; 36415 ×15; 82948 ×15; 97597; 99213 ×4; G0277 ×18

== ENCOUNTER → 2019-04-13 | Outpatient (RCR) | payer MEDICARE ==
[2019-03-26 15:35] LABS: BASOPHILS % 0.1 % (0.0-1.0); EOSINOPHILS # (AUTO) 0.2 (0.0-0.4); EOSINOPHILS % 2.2 % (0.0-6.0); HEMATOCRIT 33.9 % (34.2-44.1); HEMOGLOBIN 10.7 g/dL (12.0-16.0); LYMPHOCYTES # (AUTO) 1.8 (1.0-3.2); LYMPHOCYTES % 22.5 % (18.0-39.1); MEAN CORPUSCULAR HEMOGLOBIN 28.1 pg (28-32); MEAN CORPUSCULAR HGB CONC 31.6 g/dL (31-35); MONOCYTES # (AUTO) 0.5 (0.2-0.8); MONOCYTES % 5.9 % (4.4-11.3); NEUTROPHILS # (AUTO) 5.5 (2.1-6.9); NEUTROPHILS % 68.8 % (38.7-80.0); PLATELET COUNT 278 x10e3/uL (140-360); RED BLOOD COUNT 3.81 x10e6/uL (3.6-5.1); RED CELL DISTRIBUTION WIDTH 15.6 % (11.7-14.4)
[2019-03-26 15:53] LABS: ALANINE AMINOTRANSFERASE 17 IU/L (0-55); ALBUMIN 3.2 g/dL (3.5-5.0); ALBUMIN/GLOBULIN RATIO 0.8 (0.8-2.0); ALKALINE PHOSPHATASE 77 IU/L (40-150); ANION GAP 10.9 mmol/L (8-16); BLOOD UREA NITROGEN 17 mg/dL (7-26); BUN/CREATININE RATIO 17 (6-25); CALCIUM 9.5 mg/dL (8.4-10.2); CARBON DIOXIDE 29 mmol/L (22-29); CHLORIDE 104 mmol/L (98-107); CREATININE, SERUM 1.03 mg/dL (0.57-1.11); EST GLOMERULAR FILTRATION RATE > 60 ML/MIN (60-); POTASSIUM 3.9 mmol/L (3.5-5.1); SODIUM 140 mmol/L (136-145)
[2019-03-26 15:55] LABS: GLUCOSE 24 mg/dL (74-118)
[~2019-04-13] MED LIST changes: -BALSAM PERU/CASTOR OIL 5 GM OINT...G. ONE; -LIDOCAINE VISC 2% SOLN 15 ML UDC ONE; -LIDOCAINE/PRILOCAINE 2.5-2.5% KIT ONE
== END ==
LOC: WCC 03-15 01:00
PROVIDERS: ATTEND Podiatrist Foot & Ankle Surgery
DX: E11.621 Type 2 diabetes mellitus with foot ulcer (principal); L89.323 Pressure ulcer of left buttock, stage 3; M86.671 Other chronic osteomyelitis, right ankle and foot; L97.414 Non-pressure chronic ulcer of right heel and midfoot with necrosis of bone; I87.2 Venous insufficiency (chronic) (peripheral); I89.0 Lymphedema, not elsewhere classified; I10 Essential (primary) hypertension; B96.89 Other specified bacterial agents as the cause of diseases classified elsewhere; Z74.01 Bed confinement status
CPT/HCPCS: 11042; 15275 ×2; 29445 ×3; 29581; 36415 ×2; 80053; 82948 ×2; 83036; 84134; 85025; 99213; G0277; Q4186 ×2

== ENCOUNTER 2019-05-07 15:11 | Outpatient (RCR) | payer MEDICARE | END 2019-05-13 | LOC: WCC 15:11 | PROVIDERS: ATTEND Family Medicine Adult Medicine | DX: E11.621 Type 2 diabetes mellitus with foot ulcer (principal); L89.323 Pressure ulcer of left buttock, stage 3; M86.671 Other chronic osteomyelitis, right ankle and foot; L97.414 Non-pressure chronic ulcer of right heel and midfoot with necrosis of bone; I87.2 Venous insufficiency (chronic) (peripheral); I89.0 Lymphedema, not elsewhere classified; I10 Essential (primary) hypertension; B96.89 Other specified bacterial agents as the cause of diseases classified elsewhere; Z74.01 Bed confinement status | CPT/HCPCS: 15275 ×3; 15276 ×2; 29445 ×3; 29581 ×2; 36415 ×3; 82948 ×3; 99213 ×3; Q4186 ×3 ==

== ENCOUNTER 2019-06-11 15:02 | Outpatient (RCR) | payer MEDICARE ==
[~2019-06-11 15:02] MED LIST changes: +MINERAL OIL/PETROLAT/GLYCERI 2OZ CRM ONE
== END 2019-06-13 ==
LOC: WCC 15:02
PROVIDERS: ATTEND Family Medicine Adult Medicine
DX: E11.621 Type 2 diabetes mellitus with foot ulcer (principal); L97.414 Non-pressure chronic ulcer of right heel and midfoot with necrosis of bone; I87.2 Venous insufficiency (chronic) (peripheral); I89.0 Lymphedema, not elsewhere classified; I10 Essential (primary) hypertension; B96.89 Other specified bacterial agents as the cause of diseases classified elsewhere; Z74.01 Bed confinement status
CPT/HCPCS: 15275 ×5; 15276 ×2; 29445 ×5; 36415 ×3; 82948 ×3; Q4186 ×5

== ENCOUNTER 2019-07-09 12:59 | Outpatient (RCR) | payer MEDICARE | END 2019-07-14 | LOC: WCC 12:59 | PROVIDERS: ATTEND Family Medicine Adult Medicine | DX: E11.621 Type 2 diabetes mellitus with foot ulcer (principal); L97.414 Non-pressure chronic ulcer of right heel and midfoot with necrosis of bone; I87.2 Venous insufficiency (chronic) (peripheral); I89.0 Lymphedema, not elsewhere classified; I10 Essential (primary) hypertension; B96.89 Other specified bacterial agents as the cause of diseases classified elsewhere; Z74.01 Bed confinement status | CPT/HCPCS: 36415; 82948 ==

== ENCOUNTER → 2019-08-13 | Outpatient (RCR) | payer MEDICARE ==
[~2019-08-13] MED LIST changes: -MINERAL OIL/PETROLAT/GLYCERI 2OZ CRM ONE
== END ==
LOC: WCC 07-17 14:12
PROVIDERS: ATTEND Family Medicine Adult Medicine
DX: E11.621 Type 2 diabetes mellitus with foot ulcer (principal); L97.414 Non-pressure chronic ulcer of right heel and midfoot with necrosis of bone; I87.2 Venous insufficiency (chronic) (peripheral); I89.0 Lymphedema, not elsewhere classified; I10 Essential (primary) hypertension; B96.89 Other specified bacterial agents as the cause of diseases classified elsewhere; Z74.01 Bed confinement status
CPT/HCPCS: 36415; 82948

== ENCOUNTER 2019-09-03 12:28 | Outpatient (RCR) | payer MEDICARE ==
[~2019-09-03 12:28] MED LIST changes: +MINERAL OIL/PETROLAT/GLYCERI 2OZ CRM ONE
[2019-09-03] MEDS ORDERED: MINERAL OIL/PETROLAT/GLYCERI 6OZ BTL ONE (15:57)
== END 2019-09-13 ==
LOC: WCC 12:28
PROVIDERS: ATTEND Podiatrist Foot & Ankle Surgery
DX: E11.621 Type 2 diabetes mellitus with foot ulcer (principal); L89.619 Pressure ulcer of right heel, unspecified stage; L97.414 Non-pressure chronic ulcer of right heel and midfoot with necrosis of bone; I87.2 Venous insufficiency (chronic) (peripheral); I89.0 Lymphedema, not elsewhere classified; I10 Essential (primary) hypertension; B96.89 Other specified bacterial agents as the cause of diseases classified elsewhere; Z74.01 Bed confinement status
CPT/HCPCS: 36415; 82948

== ENCOUNTER 2019-10-10 10:15 | Outpatient (RCR) | payer MEDICARE ==
[~2019-10-10 10:15] MED LIST changes: -MINERAL OIL/PETROLAT/GLYCERI 2OZ CRM ONE
[2019-10-10] MEDS ORDERED: MINERAL OIL/PETROLAT/GLYCERI 6OZ BTL ONE (17:11)
== END 2019-10-13 ==
LOC: WCC 10:15
PROVIDERS: ATTEND Podiatrist Foot & Ankle Surgery
DX: E11.621 Type 2 diabetes mellitus with foot ulcer (principal); L89.619 Pressure ulcer of right heel, unspecified stage; L97.414 Non-pressure chronic ulcer of right heel and midfoot with necrosis of bone; I87.2 Venous insufficiency (chronic) (peripheral); I89.0 Lymphedema, not elsewhere classified; I10 Essential (primary) hypertension; B96.89 Other specified bacterial agents as the cause of diseases classified elsewhere; Z74.01 Bed confinement status
CPT/HCPCS: 36415; 82948; 87071; 87075; 87186; 87205

== ENCOUNTER 2020-01-10 12:38 | Outpatient (RCR) | payer MEDICARE ==
[~2020-01-10 12:38] MED LIST changes: +LIDOCAINE VISC 2% SOLN 15 ML UDC ONE; +MINERAL OIL/PETROLAT/GLYCERI 2OZ CRM ONE
[2020-01-10] MEDS ORDERED: MINERAL OIL/PETROLAT/GLYCERI 2OZ CRM ONE (14:46)
== END 2020-01-12 ==
LOC: WCC 12:38
PROVIDERS: ATTEND Podiatrist Foot & Ankle Surgery
DX: E11.621 Type 2 diabetes mellitus with foot ulcer (principal); L97.412 Non-pressure chronic ulcer of right heel and midfoot with fat layer exposed; L60.2 Onychogryphosis; R60.0 Localized edema; I87.2 Venous insufficiency (chronic) (peripheral); I89.0 Lymphedema, not elsewhere classified; I10 Essential (primary) hypertension; B96.5 Pseudomonas (aeruginosa) (mallei) (pseudomallei) as the cause of diseases classified elsewhere; B95.2 Enterococcus as the cause of diseases classified elsewhere; B96.89 Other specified bacterial agents as the cause of diseases classified elsewhere; Z74.01 Bed confinement status
CPT/HCPCS: 36415; 82948

== ENCOUNTER 2020-02-11 12:06 | Outpatient (RCR) | payer MEDICARE ==
[~2020-02-11 12:06] MED LIST changes: -LIDOCAINE VISC 2% SOLN 15 ML UDC ONE; -MINERAL OIL/PETROLAT/GLYCERI 2OZ CRM ONE
[2020-02-11] MEDS ORDERED: MINERAL OIL/PETROLAT/GLYCERI 6OZ BTL ONE (18:08)
== END 2020-02-12 ==
LOC: WCC 12:06
PROVIDERS: ATTEND Podiatrist Foot & Ankle Surgery
DX: E11.621 Type 2 diabetes mellitus with foot ulcer (principal); L97.412 Non-pressure chronic ulcer of right heel and midfoot with fat layer exposed; L60.2 Onychogryphosis; I87.2 Venous insufficiency (chronic) (peripheral); I89.0 Lymphedema, not elsewhere classified; R60.0 Localized edema; I10 Essential (primary) hypertension; B96.89 Other specified bacterial agents as the cause of diseases classified elsewhere; Z74.01 Bed confinement status
CPT/HCPCS: 36415; 82948

== ENCOUNTER 2020-03-10 14:25 | Outpatient (RCR) | payer MEDICARE ==
[2020-03-10] MEDS ORDERED: MINERAL OIL/PETROLAT/GLYCERI 2OZ CRM ONE (19:35)
== END 2020-03-13 ==
LOC: WCC 14:25
PROVIDERS: ATTEND Family Medicine Adult Medicine
DX: E11.621 Type 2 diabetes mellitus with foot ulcer (principal); L60.2 Onychogryphosis; L97.412 Non-pressure chronic ulcer of right heel and midfoot with fat layer exposed; I87.2 Venous insufficiency (chronic) (peripheral); I89.0 Lymphedema, not elsewhere classified; I10 Essential (primary) hypertension; B96.89 Other specified bacterial agents as the cause of diseases classified elsewhere
CPT/HCPCS: 36415; 82948

== ENCOUNTER 2020-04-10 11:53 | Outpatient (RCR) | payer MEDICARE ==
[~2020-04-10 11:53] MED LIST changes: +LIDOCAINE VISC 2% SOLN 15 ML UDC ONE; +MINERAL OIL/PETROLAT/GLYCERI 2OZ CRM ONE
== END 2020-04-13 ==
LOC: WCC 11:53
PROVIDERS: ATTEND Podiatrist Foot & Ankle Surgery
DX: E11.621 Type 2 diabetes mellitus with foot ulcer (principal); L97.412 Non-pressure chronic ulcer of right heel and midfoot with fat layer exposed; L60.2 Onychogryphosis; I87.2 Venous insufficiency (chronic) (peripheral); I89.0 Lymphedema, not elsewhere classified; R60.0 Localized edema; I10 Essential (primary) hypertension; B96.89 Other specified bacterial agents as the cause of diseases classified elsewhere; Z74.01 Bed confinement status

== ENCOUNTER 2020-05-08 12:54 | Outpatient (RCR) | payer MEDICARE ==
[~2020-05-08 12:54] MED LIST changes: +BALSAM PERU/CASTOR OIL 60 GM OINT...G. TP ONE; -LIDOCAINE VISC 2% SOLN 15 ML UDC ONE; -MINERAL OIL/PETROLAT/GLYCERI 2OZ CRM ONE
[2020-05-08] MEDS ORDERED: MINERAL OIL/PETROLAT/GLYCERI 6OZ BTL ONE (16:07)
== END 2020-05-13 ==
LOC: WCC 12:54
PROVIDERS: ATTEND Podiatrist Foot & Ankle Surgery
DX: E11.621 Type 2 diabetes mellitus with foot ulcer (principal); L97.412 Non-pressure chronic ulcer of right heel and midfoot with fat layer exposed; L60.2 Onychogryphosis; I89.0 Lymphedema, not elsewhere classified; R60.0 Localized edema; I87.2 Venous insufficiency (chronic) (peripheral); I10 Essential (primary) hypertension; B96.89 Other specified bacterial agents as the cause of diseases classified elsewhere; Z74.01 Bed confinement status
CPT/HCPCS: 36415; 82948

== ENCOUNTER 2020-06-02 12:56 | Outpatient (RCR) | payer MEDICARE ==
[~2020-06-02 12:56] MED LIST changes: -BALSAM PERU/CASTOR OIL 60 GM OINT...G. TP ONE
== END 2020-06-13 ==
LOC: WCC 12:56
PROVIDERS: ATTEND Podiatrist Foot & Ankle Surgery
DX: E11.621 Type 2 diabetes mellitus with foot ulcer (principal); L97.412 Non-pressure chronic ulcer of right heel and midfoot with fat layer exposed; L60.2 Onychogryphosis; R60.0 Localized edema; I87.2 Venous insufficiency (chronic) (peripheral); I89.0 Lymphedema, not elsewhere classified; I10 Essential (primary) hypertension; B96.89 Other specified bacterial agents as the cause of diseases classified elsewhere; Z74.01 Bed confinement status

== ENCOUNTER 2020-07-01 15:45 | Outpatient (RCR) | payer MEDICARE | END 2020-07-14 | LOC: WCC 15:45 | PROVIDERS: ATTEND Podiatrist Foot & Ankle Surgery | DX: E11.621 Type 2 diabetes mellitus with foot ulcer (principal); L60.2 Onychogryphosis; L97.412 Non-pressure chronic ulcer of right heel and midfoot with fat layer exposed; I87.2 Venous insufficiency (chronic) (peripheral); R60.0 Localized edema; I89.0 Lymphedema, not elsewhere classified; I10 Essential (primary) hypertension; B96.89 Other specified bacterial agents as the cause of diseases classified elsewhere; Z74.01 Bed confinement status ==

== ENCOUNTER 2020-07-29 13:37 | Outpatient (RCR) | payer MEDICARE | END 2020-08-13 | LOC: WCC 13:37 | PROVIDERS: ATTEND Podiatrist Foot & Ankle Surgery | DX: E11.621 Type 2 diabetes mellitus with foot ulcer (principal); L60.2 Onychogryphosis; L97.412 Non-pressure chronic ulcer of right heel and midfoot with fat layer exposed; R60.0 Localized edema; S80.822A Blister (nonthermal), left lower leg, initial encounter; B96.89 Other specified bacterial agents as the cause of diseases classified elsewhere; I10 Essential (primary) hypertension; I87.2 Venous insufficiency (chronic) (peripheral); I89.0 Lymphedema, not elsewhere classified; S80.811A Abrasion, right lower leg, initial encounter; Z74.01 Bed confinement status ==

== ENCOUNTER 2020-09-09 13:52 | Outpatient (RCR) | payer MEDICARE ==
[~2020-09-09 13:52] MED LIST changes: -MINERAL OIL/PETROLAT/GLYCERI 6OZ BTL ONE
== END 2020-09-13 ==
LOC: WCC 13:52
PROVIDERS: ATTEND Podiatrist Foot & Ankle Surgery
DX: E11.621 Type 2 diabetes mellitus with foot ulcer (principal); L97.411 Non-pressure chronic ulcer of right heel and midfoot limited to breakdown of skin; L60.2 Onychogryphosis; R60.0 Localized edema; I87.2 Venous insufficiency (chronic) (peripheral); I89.0 Lymphedema, not elsewhere classified; S80.822A Blister (nonthermal), left lower leg, initial encounter; B96.89 Other specified bacterial agents as the cause of diseases classified elsewhere; I10 Essential (primary) hypertension; Z74.01 Bed confinement status
CPT/HCPCS: 36415; 82948

== ENCOUNTER 2020-09-23 15:32 | Outpatient (RCR) | payer MEDICARE ==
[~2020-09-23 15:32] MED LIST changes: +MINERAL OIL/PETROLAT/GLYCERI 6OZ BTL ONE; +MUPIROCIN 2% OINT 22 GM TUBE ONE
[2020-09-23] MEDS ORDERED: TRYPSIN/BALSAM PERU/CASTOR OIL ONE (16:50)
== END 2020-10-13 ==
LOC: WCC 15:32
PROVIDERS: ATTEND Podiatrist Foot & Ankle Surgery
DX: E11.621 Type 2 diabetes mellitus with foot ulcer (principal); L97.411 Non-pressure chronic ulcer of right heel and midfoot limited to breakdown of skin; L60.2 Onychogryphosis; R60.0 Localized edema; I89.0 Lymphedema, not elsewhere classified; I87.2 Venous insufficiency (chronic) (peripheral); I10 Essential (primary) hypertension; B96.89 Other specified bacterial agents as the cause of diseases classified elsewhere; Z74.01 Bed confinement status